=== PATIENT | male | born 1960 | race Caucasian/White ===

== ENCOUNTER 2024-11-21 17:39 | Outpatient (REF) | payer OTHER, SELFPAY ==
--- NOTE | ~2024-11-21 | MR_ITS ---
CLINICAL HISTORY: SPONDYLOSIS W MYELOPATHY ? Cord compression. MR cervical spine without gadolinium Comparison: None Findings: Abnormal signal of the cervical spinal cord at C3-C4 extending inferiorly to C4 selectively measures 6 mm concerning for manifestations of myelopathy secondary to spinal stenosis. Small cord infarction is also considered (image 15 of series 6). No significant adjacent syrinx or piercing pharynx edema this time. Analogous lesion at C7 measures 4 mm. No intramedullary mass-effect by noncontrast imaging. Mild reversal of the cervical lordosis. Mild C5, C6, and C7 vertebral height losses appear old chronic. Multilevel Modic type 1 and Modic type 2 endplate changes are noted with partial bridging osteophytes. Posterior longitudinal ligament mineralization of the C3-C4 accentuated spinal stenosis of the level. No drainable paraspinal fluid collection. Postprocedural changes from posterior decompression from C3-C4 to the cervicothoracic junction. C2-C3: Bilateral facet arthropathy. No spinal canal stenosis. Mild-moderate right and mild left foraminal narrowing. C3-C4: Disc osteophyte complex and bilateral facet arthropathy with moderate and left-sided predominant spinal canal stenosis. Severe bilateral foraminal narrowing. C4-C5: Mild anterolisthesis and previous procedure changes from posterior decompression. Mild likely recurrent right foraminal narrowing. C5-C6: Disc osteophyte complex and bilateral facet arthropathy. Postprocedural changes with recurrent moderate right foraminal narrowing. C6-C7: Postprocedural changes. Likely recurrent mild-moderate right foraminal narrowing. C7-T1: Bilateral facet arthropathy. Mild degenerative disc change. No spinal canal stenosis. Mild-moderate bilateral foraminal narrowing. Facet arthropathy also includes the imaged thoracic spine. IMPRESSION: 1. Nonspecific abnormal signal of the cervical spinal cord. Differential considerations include manifestations of the myelopathy secondary to spinal stenosis, particularly at C3-C4. 2. Findings of spinal stenosis are most pronounced of the C3-C4 where there is moderate spinal canal stenosis and severe bilateral foraminal narrowing. 3. Multilevel facet arthropathy of the cervical spine. This document has been electronically signed by: Jonathan Miguel MD on 11/21/2024 19:24:19
--- OUTSIDE RECORDS SUMMARY | 2024-11-21 17:47 | XMS_ITS | Encounter Summary ---
Author Organization [facility] Address [address] [place] [address] Care Team Providers Care Brand Engineer Name Role Phone Clemente Davidson MD Primary Care Provider [phone] Encounter Details Date Type Department Care Team (Late st Contact Info) Description 08/05/2024 Lab Requisition [facility] - Main Lab [address] [facility] [place] [address] Clemente Davidson MD [address] [facility] [address] [place], [address] Cellulitis, unspecified Social History Tobacco Use Types Packs/Day Years Used Date Smoking Tobacco: Every Day Cigarettes Smokeless Tobacco: Never Alcohol Use Standard Drinks/Week Comments Yes 0 (1 standard drink = 0.6 oz pur e alcohol) Sex and Gender Information Value Date Recorded Sex Assigned at Not on file Legal Sex Male 12:28 PM EST Gender Identity Not on file Sexual Orientation Not on file documented as of this encounter Plan of Treatment Not on file documented as of this encounter Procedures Procedure Name Priority Date/Time Associated Diagnosis Comments TRAVEL PHLEBOTOMY FEE Routine 08/06/2024 5:01 AM EST Cellulitis, unspecified CBC WITH AUTO DIFFERENTIAL Routine 08/06/2024 5:01 AM EST Cellulitis, unspecified SEDIMENTATION RATE Routine 08/06/2024 5: 01 AM EST Cellulitis, unspecified CBC AND DIFFERENTIAL Routine 08/06/2024 5:01 AM EST Cellulitis, unspecified C-REACTIVE PROTEIN Routine 08/06/2024 5: 01 AM EST Cellulitis, unspecified COMPREHENSIVE METABOLIC PANEL Routine 08/06/2024 5:01 AM EST Cellulitis, unspecified documented in this encounter Results * Travel phlebotomy fee (08/06/2024 5:01 AM EST) [facility] TRAVEL PHLEBOTOMY FEE Completed 08/06/2024 11:01 AM [facility] Blood Venous blood specimen / Unknown Venipuncture / Unknown 08/06/2024 5:01 AM EST 08/06/2024 10:51 AM EST us Clemente Davidson MD LAB BLOOD ORDERABLES Final Resul t [facility] [address] [place] [address], [place] [phone] * (ABNORMAL) CBC auto differential (08/06/2024 5:01 AM EST) [facility] WBC 10.0 4.8 - 10.8 K/mcL LAB HEMETOLOGY METHOD 08/06/2024 11:27 AM [facility] RBC 4.30(L) 4.50 - 5.50 M/mcL LAB HEMETOLOGY METHOD 08/06/2024 11:27 AM [facility] Hemoglobin 12.1(L) 13.5 - 17.5 g/dL LAB HEMETOLOGY METHOD 08/06/2024 11:27 AM [facility] Hematocrit 39.6(L) 42.0 - 54.0 % LAB HEMETOLOGY METHOD 08/06/2024 11:27 AM [facility] MCV 91.7 79.0 - 98.0 FL LAB HEMETOLOGY METHOD 08/06/2024 11:27 AM [facility] MCH 28.0 27.0 - 32.0 pcg LAB HEMETOLOGY METHOD 08/06/2024 11:27 AM [facility] MCHC 30.6(L) 32.0 - 37.0 g/dL LAB HEMETOLOGY METHOD 08/06/2024 11:27 AM [facility] RDW 15.0 11.0 - 15.0 % LAB HEMETOLOGY METHOD 08/06/2024 11:27 AM [facility] Platelets 334 130 - 400 K/mcL LAB HEMETOLOGY METHOD 08/06/2024 11:27 AM [facility] MPV 11.4(H) 7.0 - 11.0 FL LAB HEMETOLOGY METHOD 08/06/2024 11:27 AM [facility] NRBC 0.0 <1.0 % LAB HEMETOLOGY METHOD 08/06/2024 11:27 AM [facility] NRBC Absolute 0.00 <0.10 K/mcL LAB HEMETOLOGY METHOD 08/06/2024 11:27 AM [facility] Neutrophils Relative 43.9 % LAB HEMETOLOGY METHOD 08/06/2024 11:27 AM [facility] Lymphocytes Relative 39.7 % LAB HEMETOLOGY METHOD 08/06/2024 11:27 AM [facility] Monocytes Relative 11.4 % LAB HEMETOLOGY METHOD 08/06/2024 11:27 AM [facility] Eosinophils Relative 4.2 % LAB HEMETOLOGY METHOD 08/06/2024 11:27 AM [facility] Basophils Relative 0.6 % LAB HEMETOLOGY METHOD 08/06/2024 11:27 AM [facility] Immature Granulocytes Relative 0.2 % LAB HEMETOLOGY METHOD 08/06/2024 11:27 AM [facility] Neutrophils Absolute 4.37 1.50 - 7.00 K/mcL LAB HEMETOLOGY METHOD 08/06/2024 11:27 AM [facility] Lymphocytes Absolute 3.95 1.00 - 5.00 K/mcL LAB HEMETOLOGY METHOD 08/06/2024 11:27 AM EST [facility] Monocytes Absolute 1.14(H) 0.20 - 1.00 K/[facility] LAB HEMETOLOGY METHOD 08/06/2024 11:27 AM EST [facility] Eosinophils Absolute 0.42 0.00 - 0.50 K/[facility] LAB HEMETOLOGY METHOD 08/06/2024 11:27 AM EST [facility] Basophils Absolute 0.06 0.00 - 0.20 K/[facility] LAB HEMETOLOGY METHOD 08/06/2024 11:27 AM EST [facility] Immature Granulocytes Absolute 0.02 0.00 - 0.03 K/[facility] LAB HEMETOLOGY METHOD 08/06/2024 11:27 AM EST [facility] Blood Venous blood specimen / Unknown Venipuncture / Unknown 08/06/2024 5:01 AM EST 08/06/2024 10:51 AM EST us Clemente Davidson MD LAB BLOOD ORDERABLES Final Resul t Performing Organization Address City/[facility]/ZIP Co de Phone Number [facility] [address] [place] [address], [place] [phone] * (ABNORMAL) C-reactive protein (08/06/2024 5:01 AM EST) C-Reactive Protein 0.97(H) <=0.50 mg/dL LAB CHEMISTRY METHOD 08/06/2024 11:42 AM EST [facility] Blood Venous blood specimen / Unknown Venipuncture / Unknown 08/06/2024 5:01 AM EST 08/06/2024 10:51 AM EST us Clemente Davidson MD LAB BLOOD ORDERABLES Final Resul t [facility] [address] [place] [address], [place] [phone] * Sedimentation rate (08/06/2024 5:01 AM EST) Pathologist [facility] Sed Rate 20 0 - 20 mm/hr LAB HEMETOLOGY METHOD 08/06/2024 11:40 AM [facility] Blood Venous blood specimen / Unknown Venipuncture / Unknown 08/06/2024 5:01 AM EST 08/06/2024 10:51 AM EST us Clemente Davidson MD LAB BLOOD ORDERABLES Final Resul t [facility] [address] [place] [address], [place] [phone] * (ABNORMAL) Comprehensive metabolic panel (08/06/2024 5:01 AM EST) [facility] Sodium 141 133 - 145 mmol/L LAB CHEMISTRY METHOD 08/06/2024 11:42 AM [facility] Potassium 4.9 3.5 - 5.5 mmol/L LAB CHEMISTRY METHOD 08/06/2024 11:42 AM [facility] Chloride 111(H) 96 - 110 mmol/L LAB CHEMISTRY METHOD 08/06/2024 11:42 AM [facility] CO2 23 21 - 32 mmol/L LAB CHEMISTRY METHOD 08/06/2024 11:42 AM [facility] Anion Gap 7 3 - 11 LAB CHEMISTRY METHOD 08/06/2024 11:42 AM [facility] Glucose 69(L) 70 - 100 mg/dL LAB CHEMISTRY METHOD 08/06/2024 11:42 AM [facility] BUN 13 5 - 25 mg/dL LAB CHEMISTRY METHOD 08/06/2024 11:42 AM [facility] Creatinine 1.00 0.70 - 1.30 mg/dL LAB CHEMISTRY METHOD 08/06/2024 11:42 AM [facility] eGFR 85 >=60 mL/min/1. 73m2 LAB CHEMISTRY METHOD 08/06/2024 11:42 AM [facility] Comment:Calculation based on the??Chronic Kidney Disease Epidemiology Collaboration (CKD-EPI) equation refit??without adjustment for race. BUN/Creatinine Ratio 13.0 LAB CHEMISTRY METHOD 08/06/2024 11:42 AM [facility] Calcium 9.6 8.5 - 10.5 mg/dL LAB CHEMISTRY METHOD 08/06/2024 11:42 AM [facility] AST (SGOT) 20 10 - 42 unit/L LAB CHEMISTRY METHOD 08/06/2024 11:42 AM [facility] ALT (SGPT) 20 10 - 60 unit/L LAB CHEMISTRY METHOD 08/06/2024 11:42 AM [facility] Alkaline Phosphatase 74 42 - 121 unit/L LAB CHEMISTRY METHOD 08/06/2024 11:42 AM [facility] Total Protein 6.5 6.0 - 8.0 g/dL LAB CHEMISTRY METHOD 08/06/2024 11:42 AM [facility] Albumin 3.2 3.2 - 5.0 g/dL LAB CHEMISTRY METHOD 08/06/2024 11:42 AM [facility] Total Bilirubin 0.4 0.0 - 1.4 mg/dL LAB CHEMISTRY METHOD 08/06/2024 11:42 AM [facility] Blood Venous blood specimen / Unknown Venipuncture / Unknown 08/06/2024 5:01 AM EST 08/06/2024 10:51 AM EST us Clemente Davidson MD LAB BLOOD ORDERABLES Final Resul t [facility] [address] [place] [address], documented in this encounter Visit Diagnoses Diagnosis Cellulitis, unspecified documented in this encounter Care Teams Brand Engineer Relationship Specialty Start Date End Date Clemente Davidson MD [address], [phone] PCP - General Family Medicine 08/15/24 documented as of this encounter
--- OUTSIDE RECORDS SUMMARY | 2024-11-21 17:48 | XMS_ITS | Encounter Summary ---
Author Organization [facility] Address [address] [place] [address] Care Team Providers Care Urban Anthropologist Name Role Phone Clemente Davidson MD Primary Care Provider [phone] Encounter Details Date Type Department Care Team (Late st Contact Info) Description 08/29/2024 Lab Requisition [facility] - Main Lab [address] [facility] [place] [address] Clemente Davidson MD 38 [facility] [address] [place], [address] Osteomyelitis of vertebra, sacral and sacrococcygeal region (CMS/HCC) Social History Tobacco Use Types Packs/Day Years [...] Procedure Name Priority Date/Time Associated Diagnosis Comments SEDIMENTATION RATE Routine 09/01/2024 4: 51 AM EST Osteomyelitis of vertebra, sacral and sacrococcygeal region (CMS/HCC) COMPLETE BLOOD COUNT Routine 09/01/2024 4:51 AM EST Osteomyelitis of vertebra, sacral and sacrococcygeal region (CMS/HCC) C-REACTIVE PROTEIN Routine 09/01/2024 4: 51 AM EST Osteomyelitis of vertebra, sacral and sacrococcygeal region (CMS/HCC) COMPREHENSIVE METABOLIC PANEL Routine 09/01/2024 4:51 AM EST Osteomyelitis of vertebra, sacral and sacrococcygeal region (CMS/HCC) documented in this encounter Results * C-reactive protein (09/01/2024 4:51 AM EST) [facility] C-Reactive Protein 0.37 <=0.50 mg/dL LAB CHEMISTRY METHOD 09/01/2024 9:18 AM EST [facility] Blood Venous blood specimen / Unknown Venipuncture / Unknown 09/01/2024 4:51 AM EST 09/01/2024 8:13 AM EST Clemente Davidson MD LAB BLOOD ORDERABLES Final Resul t Performing Organization Address [facility]/ZIP Co de Phone Number [facility] [address] [place] [address], [place] [phone] * (ABNORMAL) Sedimentation rate (09/01/2024 4:51 AM EST) [facility] Sed Rate 38(H) 0 - 20 mm/hr LAB HEMETOLOGY METHOD 09/01/2024 8:40 AM EST [facility] Blood Venous blood specimen / Unknown Venipuncture / Unknown 09/01/2024 4:51 AM EST 09/01/2024 8:13 AM EST Clemente Davidson MD LAB BLOOD ORDERABLES Final Resul t Performing Organization Address City/[facility]/ZIP Co de Phone Number [facility] [address] [place] [address], [place] [phone] * (ABNORMAL) Comprehensive metabolic panel (09/01/2024 4:51 AM EST) [facility] Sodium 143 133 - 145 mmol/L LAB CHEMISTRY METHOD 09/01/2024 9:11 AM EST [facility] Potassium 4.4 3.5 - 5.5 mmol/L LAB CHEMISTRY METHOD 09/01/2024 9:11 AM EST [facility] Chloride 113(H) 96 - 110 mmol/L LAB CHEMISTRY METHOD 09/01/2024 9:11 AM [facility] CO2 23 21 - 32 mmol/L LAB CHEMISTRY METHOD 09/01/2024 9:11 AM [facility] Anion Gap 7 3 - 11 LAB CHEMISTRY METHOD 09/01/2024 9:11 AM [facility] Glucose 95 70 - 100 mg/dL LAB CHEMISTRY METHOD 09/01/2024 9:11 AM [facility] BUN 18 5 - 25 mg/dL LAB CHEMISTRY METHOD 09/01/2024 9:11 AM [facility] Creatinine 0.84 0.70 - 1.30 mg/dL LAB CHEMISTRY METHOD 09/01/2024 9:11 AM [facility] eGFR 98 >=60 mL/min/1. 73m2 LAB CHEMISTRY METHOD 09/01/2024 9:11 AM [facility] Comment:Calculation based on the??Chronic Kidney Disease Epidemiology Collaboration (CKD-EPI) equation refit??without adjustment for race. BUN/Creatinine Ratio 21.4 LAB CHEMISTRY METHOD 09/01/2024 9:11 AM [facility] Calcium 9.0 8.5 - 10.5 mg/dL LAB CHEMISTRY METHOD 09/01/2024 9:11 AM [facility] AST (SGOT) 12 10 - 42 unit/L LAB CHEMISTRY METHOD 09/01/2024 9:11 AM [facility] ALT (SGPT) 17 10 - 60 unit/L LAB CHEMISTRY METHOD 09/01/2024 9:11 AM [facility] Alkaline Phosphatase 101 42 - 121 unit/L LAB CHEMISTRY METHOD 09/01/2024 9:11 AM [facility] Total Protein 5.9(L) 6.0 - 8.0 g/dL LAB CHEMISTRY METHOD 09/01/2024 9:11 AM [facility] Albumin 3.1(L) 3.2 - 5.0 g/dL LAB CHEMISTRY METHOD 09/01/2024 9:11 AM EST [facility] Total Bilirubin 0.2 0.0 - 1.4 mg/dL LAB CHEMISTRY METHOD 09/01/2024 9:11 AM [facility] Blood Venous blood specimen / Unknown Venipuncture / Unknown 09/01/2024 4:51 AM EST 09/01/2024 8:13 AM EST us Clemente Davidson MD LAB BLOOD ORDERABLES Final Resul t [facility] [address] [place] [address], [place] [phone] * (ABNORMAL) Complete blood count (09/01/2024 4:51 AM EST) WBC 10.7 4.8 - 10.8 K/mcL LAB HEMETOLOGY METHOD 09/01/2024 8:34 AM [facility] RBC 4.40(L) 4.50 - 5.50 M/[facility] LAB HEMETOLOGY METHOD 09/01/2024 8:34 AM [facility] Hemoglobin 12.3(L) 13.5 - 17.5 g/dL LAB HEMETOLOGY METHOD 09/01/2024 8:34 AM [facility] Hematocrit 39.2(L) 42.0 - 54.0 % LAB HEMETOLOGY METHOD 09/01/2024 8:34 AM [facility] MCV 89.3 79.0 - 98.0 FL LAB HEMETOLOGY METHOD 09/01/2024 8:34 AM [facility] MCH 28.0 27.0 - 32.0 pcg LAB HEMETOLOGY METHOD 09/01/2024 8:34 AM [facility] MCHC 31.4(L) 32.0 - 37.0 g/dL LAB HEMETOLOGY METHOD 09/01/2024 8:34 AM EST [facility] RDW 15.5(H) 11.0 - 15.0 % LAB HEMETOLOGY METHOD 09/01/2024 8:34 AM EST [facility] Platelets 320 130 - 400 K/mcL LAB HEMETOLOGY METHOD 09/01/2024 8:34 AM EST [facility] MPV 11.2(H) 7.0 - 11.0 FL LAB HEMETOLOGY METHOD 09/01/2024 8:34 AM EST [facility] NRBC 0.0 <1.0 % LAB HEMETOLOGY METHOD 09/01/2024 8:34 AM [facility] NRBC Absolute 0.00 <0.10 K/mcL LAB HEMETOLOGY METHOD 09/01/2024 8:34 AM [facility] Blood Venous blood specimen / Unknown Venipuncture / Unknown 09/01/2024 4:51 AM EST 09/01/2024 8:13 AM EST us Clemente Davidson MD LAB BLOOD ORDERABLES Final Resul t [facility] [address] [place] [address], documented in this encounter Visit Diagnoses Diagnosis Osteomyelitis of vertebra, sacral and sacrococcygeal region (CMS/HCC) documented in this encounter Care Teams Urban Anthropologist Relationship Specialty Start Date End Date Clemente Davidson MD [address] [place] [address], [phone] PCP - General Family Medicine 08/15/24 documented as of this encounter
--- OUTSIDE RECORDS SUMMARY | 2024-11-21 17:48 | XMS_ITS | Encounter Summary ---
Author Organization [facility] Address [address] [place] [phone] Care Team Providers Care Cylinder Machine Operator Name Role Phone Clemente Davidson MD Primary Care Provider [phone] Encounter Details Date Type Department Care Team (Late st Contact Info) Description 2024 Lab Requisition [facility] - Main Lab [address] [facility] [place] [address] Clemente Davidson MD [address] [facility] [address] [place], [phone] Osteomyelitis of vertebra, sacral and sacrococcygeal [...] on file documented as of this encounter Visit Diagnoses Diagnosis Osteomyelitis of vertebra, sacral and sacrococcygeal region (CMS/HCC) documented in this encounter Care Teams Cylinder Machine Operator Relationship Specialty Start Date End Date Clemente Davidson MD [address] [facility] [address] [place], [phone] PCP - General Family Medicine 08/15/24 documented as of this encounter
--- OUTSIDE RECORDS SUMMARY | 2024-11-21 17:48 | XMS_ITS | Encounter Summary ---
Author Organization [facility] Address [address] [place] [address] Care Team Providers Care Electronic Technologist Name Role Phone Clemente Davidson MD Primary Care Provider Encounter Details Date Type Department Care Team (Late st Contact Info) Description 08/15/2024 Lab Requisition [facility] - Main Lab 299 [email or web address] [address] Clemente Davidson MD 38 [facility] [address] [place], [phone] Essential (primary) hypertension; Chronic kidney disease, unspecified; Osteomyelitis of vertebra, sacral and sacrococcygeal region [...] Procedure Name Priority Date/Time Associated Diagnosis Comments VITAMIN D 25 HYDROXY Routine 08/18/2024 4:57 AM EST Essential (primary) hypertension Chronic kidney disease, unspecified Osteomyelitis of vertebra, sacral and sacrococcygeal region (CMS/HCC) SEDIMENTATION RATE Routine 08/18/2024 4: 57 AM EST Essential (primary) hypertension Chronic kidney disease, unspecified Osteomyelitis of vertebra, sacral and sacrococcygeal region (CMS/HCC) COMPLETE BLOOD COUNT Routine 08/18/2024 4:57 AM EST Essential (primary) hypertension Chronic kidney disease, unspecified Osteomyelitis of vertebra, sacral and sacrococcygeal region (CMS/HCC) C-REACTIVE PROTEIN Routine 08/18/2024 4: 57 AM EST Essential (primary) hypertension Chronic kidney disease, unspecified Osteomyelitis of vertebra, sacral and sacrococcygeal region (CMS/HCC) COMPREHENSIVE METABOLIC PANEL Routine 08/18/2024 4:57 AM EST Essential (primary) hypertension Chronic kidney disease, unspecified Osteomyelitis of vertebra, sacral and sacrococcygeal region (CMS/HCC) documented in this encounter Results * Vitamin D 25 hydroxy (08/18/2024 4:57 AM EST) [facility] Vit D, 25-Hydroxy 44.7 30.0 - 80.0 ng/mL LAB CHEMISTRY METHOD 08/18/2024 9:11 AM EST [facility] Blood Venous blood specimen / Unknown Venipuncture / Unknown 08/18/2024 4:57 AM EST 08/18/2024 7:49 AM EST us Clemente Davidson MD LAB BLOOD ORDERABLES Final Resul t Performing Organization Address City/[facility]/ZIP Co de Phone Number [facility] [address] [place] [address], * (ABNORMAL) C-reactive protein (08/18/2024 4:57 AM EST) [facility] C-Reactive Protein 0.56(H) <=0.50 mg/dL LAB CHEMISTRY METHOD 08/18/2024 9:02 AM EST [facility] Blood Venous blood specimen / Unknown Venipuncture / Unknown 08/18/2024 4:57 AM EST 08/18/2024 7:49 AM EST us Clemente Davidson MD LAB BLOOD ORDERABLES Final Resul t [facility] [address] [place] [address], [place] [phone] * (ABNORMAL) Sedimentation rate (08/18/2024 4:57 AM EST) [facility] Sed Rate 54(H) 0 - 20 mm/hr LAB HEMETOLOGY METHOD 08/18/2024 8:22 AM EST [facility] Blood Venous blood specimen / Unknown Venipuncture / Unknown 08/18/2024 4:57 AM EST 08/18/2024 7:49 AM EST us Clemente Davidson MD LAB BLOOD ORDERABLES Final Resul t [facility] [address] [place] [address], [place] [phone] * (ABNORMAL) Comprehensive metabolic panel (08/18/2024 4:57 AM EST) [facility] Sodium 143 133 - 145 mmol/L LAB CHEMISTRY METHOD 08/18/2024 9:02 AM [facility] Potassium 4.3 3.5 - 5.5 mmol/L LAB CHEMISTRY METHOD 08/18/2024 9:02 AM [facility] Chloride 115(H) 96 - 110 mmol/L LAB CHEMISTRY METHOD 08/18/2024 9:02 AM [facility] CO2 22 21 - 32 mmol/L LAB CHEMISTRY METHOD 08/18/2024 9:02 AM [facility] Anion Gap 6 3 - 11 LAB CHEMISTRY METHOD 08/18/2024 9:02 AM [facility] Glucose 87 70 - 100 mg/dL LAB CHEMISTRY METHOD 08/18/2024 9:02 AM [facility] BUN 16 5 - 25 mg/dL LAB CHEMISTRY METHOD 08/18/2024 9:02 AM [facility] Creatinine 0.83 0.70 - 1.30 mg/dL LAB CHEMISTRY METHOD 08/18/2024 9:02 AM [facility] eGFR 98 >=60 mL/min/1. 73m2 LAB CHEMISTRY METHOD 08/18/2024 9:02 AM [facility] Comment:Calculation based on the??Chronic Kidney Disease Epidemiology Collaboration (CKD-EPI) equation refit??without adjustment for race. BUN/Creatinine Ratio 19.3 LAB CHEMISTRY METHOD 08/18/2024 9:02 AM [facility] Calcium 9.0 8.5 - 10.5 mg/dL LAB CHEMISTRY METHOD 08/18/2024 9:02 AM [facility] AST (SGOT) 13 10 - 42 unit/L LAB CHEMISTRY METHOD 08/18/2024 9:02 AM [facility] ALT (SGPT) 18 10 - 60 unit/L LAB CHEMISTRY METHOD 08/18/2024 9:02 AM [facility] Alkaline Phosphatase 91 42 - 121 unit/L LAB CHEMISTRY METHOD 08/18/2024 9:02 AM [facility] Total Protein 6.2 6.0 - 8.0 g/dL LAB CHEMISTRY METHOD 08/18/2024 9:02 AM [facility] Albumin 3.1(L) 3.2 - 5.0 g/dL LAB CHEMISTRY METHOD 08/18/2024 9:02 AM [facility] Total Bilirubin 0.2 0.0 - 1.4 mg/dL LAB CHEMISTRY METHOD 08/18/2024 9:02 AM [facility] Blood Venous blood specimen / Unknown Venipuncture / Unknown 08/18/2024 4:57 AM EST 08/18/2024 7:49 AM EST us Clemente Davidson MD LAB BLOOD ORDERABLES Final Resul t [facility] [address] [place] [address], * (ABNORMAL) Complete blood count (08/18/2024 4:57 AM EST) [facility] WBC 10.9(H) 4.8 - 10.8 K/mcL LAB HEMETOLOGY METHOD 08/18/2024 8:12 AM [facility] RBC 4.30(L) 4.50 - 5.50 M/mcL LAB HEMETOLOGY METHOD 08/18/2024 8:12 AM [facility] Hemoglobin 11.8(L) 13.5 - 17.5 g/dL LAB HEMETOLOGY METHOD 08/18/2024 8:12 AM [facility] Hematocrit 38.3(L) 42.0 - 54.0 % LAB HEMETOLOGY METHOD 08/18/2024 8:12 AM [facility] MCV 89.9 79.0 - 98.0 FL LAB HEMETOLOGY METHOD 08/18/2024 8:12 AM [facility] MCH 27.7 27.0 - 32.0 pcg LAB HEMETOLOGY METHOD 08/18/2024 8:12 AM [facility] MCHC 30.8(L) 32.0 - 37.0 g/dL LAB HEMETOLOGY METHOD 08/18/2024 8:12 AM [facility] RDW 15.2(H) 11.0 - 15.0 % LAB HEMETOLOGY METHOD 08/18/2024 8:12 AM [facility] Platelets 324 130 - 400 K/mcL LAB HEMETOLOGY METHOD 08/18/2024 8:12 AM [facility] MPV 11.3(H) 7.0 - 11.0 FL LAB HEMETOLOGY METHOD 08/18/2024 8:12 AM [facility] NRBC 0.0 <1.0 % LAB HEMETOLOGY METHOD 08/18/2024 8:12 AM [facility] NRBC Absolute 0.00 <0.10 K/mcL LAB HEMETOLOGY METHOD 08/18/2024 8:12 AM EST [facility] Blood Venous blood specimen / Unknown Venipuncture / Unknown 08/18/2024 4:57 AM EST 08/18/2024 7:49 AM EST us Clemente Davidson MD LAB BLOOD ORDERABLES Final Resul t [facility] [address] [place] [address], documented in this encounter Visit Diagnoses Diagnosis Essential (primary) hypertension Unspecified essential hypertension Chronic kidney disease, unspecified Osteomyelitis of vertebra, sacral and sacrococcygeal region (CMS/HCC) documented in this encounter Care Teams Electronic Technologist Relationship Specialty Start Date End Date Clemente Davidson MD [address] [place] [phone] PCP - General Family Medicine 08/15/24 documented as of this encounter
--- OUTSIDE RECORDS SUMMARY | 2024-11-21 17:48 | XMS_ITS | Encounter Summary ---
Author Organization [facility] Address [address] [place] [phone] Care Team Providers Care [employer] Name Role Phone Clemente Davidson MD Primary Care Provider [phone] Encounter Details Date Type Department Care Team (Late st Contact Info) Description 09/06/2024 Lab Requisition [facility] - Main Lab [address] [facility] [employer] [place] [address] Clemente Davidson MD 38 [facility] [address] [place], [phone] Osteomyelitis of vertebra, sacral and sacrococcygeal [...] Date/Time Associated Diagnosis Comments SEDIMENTATION RATE Routine 09/08/2024 5: 10 AM EST Osteomyelitis of vertebra, sacral and sacrococcygeal region (CMS/HCC) COMPLETE BLOOD COUNT Routine 09/08/2024 5:10 AM EST Osteomyelitis of vertebra, sacral and sacrococcygeal region (CMS/HCC) C-REACTIVE PROTEIN Routine 09/08/2024 5: 10 AM EST Osteomyelitis of vertebra, sacral and sacrococcygeal region (CMS/HCC) COMPREHENSIVE METABOLIC PANEL Routine 09/08/2024 5:10 AM EST Osteomyelitis of vertebra, sacral and sacrococcygeal region (CMS/HCC) documented in this encounter Results * (ABNORMAL) C-reactive protein (09/08/2024 5:10 AM EST) Pathologist [facility] C-Reactive Protein 1.41(H) <=0.50 mg/dL LAB CHEMISTRY METHOD 09/08/2024 10:09 AM EST [facility] Blood Venous blood specimen / Unknown Venipuncture / Unknown 09/08/2024 5:10 AM EST 09/08/2024 9:18 AM EST Clemente Davidson MD LAB BLOOD ORDERABLES Final Resul t Performing Organization Address [facility]/ZIP Co de Phone Number [facility] [address] [place] [address], [place] [phone] * (ABNORMAL) Sedimentation rate (09/08/2024 5:10 AM EST) [facility] Sed Rate 42(H) 0 - 20 mm/hr LAB HEMETOLOGY METHOD 09/08/2024 10:01 AM EST [facility] Blood Venous blood specimen / Unknown Venipuncture / Unknown 09/08/2024 5:10 AM EST 09/08/2024 9:13 AM EST Clemente Davidson MD LAB BLOOD ORDERABLES Final Resul t [facility] [address] [place] [address], [place] [phone] * (ABNORMAL) Comprehensive metabolic panel (09/08/2024 5:10 AM EST) [facility] Sodium 142 133 - 145 mmol/L LAB CHEMISTRY METHOD 09/08/2024 10:07 AM EST [facility] Potassium 3.9 3.5 - 5.5 mmol/L LAB CHEMISTRY METHOD 09/08/2024 10:07 AM [facility] Chloride 113(H) 96 - 110 mmol/L LAB CHEMISTRY METHOD 09/08/2024 10:07 AM [facility] CO2 22 21 - 32 mmol/L LAB CHEMISTRY METHOD 09/08/2024 10:07 AM [facility] Anion Gap 7 3 - 11 LAB CHEMISTRY METHOD 09/08/2024 10:07 AM [facility] Glucose 152(H) 70 - 100 mg/dL LAB CHEMISTRY METHOD 09/08/2024 10:07 AM [facility] BUN 17 5 - 25 mg/dL LAB CHEMISTRY METHOD 09/08/2024 10:07 AM [facility] Creatinine 0.90 0.70 - 1.30 mg/dL LAB CHEMISTRY METHOD 09/08/2024 10:07 AM [facility] eGFR 96 >=60 mL/min/1. 73m2 LAB CHEMISTRY METHOD 09/08/2024 10:07 AM [facility] Comment:Calculation based on the??Chronic Kidney Disease Epidemiology Collaboration (CKD-EPI) equation refit??without adjustment for race. BUN/Creatinine Ratio 18.9 LAB CHEMISTRY METHOD 09/08/2024 10:07 AM [facility] Calcium 8.8 8.5 - 10.5 mg/dL LAB CHEMISTRY METHOD 09/08/2024 10:07 AM [facility] AST (SGOT) 14 10 - 42 unit/L LAB CHEMISTRY METHOD 09/08/2024 10:07 AM [facility] ALT (SGPT) 19 10 - 60 unit/L LAB CHEMISTRY METHOD 09/08/2024 10:07 AM [facility] Alkaline Phosphatase 105 42 - 121 unit/L LAB CHEMISTRY METHOD 09/08/2024 10:07 AM [facility] Total Protein 5.9(L) 6.0 - 8.0 g/dL LAB CHEMISTRY METHOD 09/08/2024 10:07 AM [facility] Albumin 3.0(L) 3.2 - 5.0 g/dL LAB CHEMISTRY METHOD 09/08/2024 10:07 AM [facility] Total Bilirubin 0.3 0.0 - 1.4 mg/dL LAB CHEMISTRY METHOD 09/08/2024 10:07 AM [facility] Blood Venous blood specimen / Unknown Venipuncture / Unknown 09/08/2024 5:10 AM EST 09/08/2024 9:18 AM EST us Clemente Davidson MD LAB BLOOD ORDERABLES Final Resul t [facility] [address] [place] [address], [place] [phone] * (ABNORMAL) Complete blood count (09/08/2024 5:10 AM EST) WBC 10.1 4.8 - 10.8 K/mcL LAB HEMETOLOGY METHOD 09/08/2024 9:47 AM [facility] RBC 4.40(L) 4.50 - 5.50 M/mcL LAB HEMETOLOGY METHOD 09/08/2024 9:47 AM [facility] Hemoglobin 12.2(L) 13.5 - 17.5 g/dL LAB HEMETOLOGY METHOD 09/08/2024 9:47 AM [facility] Hematocrit 39.0(L) 42.0 - 54.0 % LAB HEMETOLOGY METHOD 09/08/2024 9:47 AM [facility] MCV 89.4 79.0 - 98.0 FL LAB HEMETOLOGY METHOD 09/08/2024 9:47 AM [facility] MCH 28.0 27.0 - 32.0 pcg LAB HEMETOLOGY METHOD 09/08/2024 9:47 AM [facility] MCHC 31.3(L) 32.0 - 37.0 g/dL LAB HEMETOLOGY METHOD 09/08/2024 9:47 AM EST [facility] RDW 15.8(H) 11.0 - 15.0 % LAB HEMETOLOGY METHOD 09/08/2024 9:47 AM [facility] Platelets 280 130 - 400 K/mcL LAB HEMETOLOGY METHOD 09/08/2024 9:47 AM EST [facility] MPV 11.5(H) 7.0 - 11.0 FL LAB HEMETOLOGY METHOD 09/08/2024 9:47 AM EST [facility] NRBC 0.0 <1.0 % LAB HEMETOLOGY METHOD 09/08/2024 9:47 AM [facility] NRBC Absolute 0.00 <0.10 K/mcL LAB HEMETOLOGY METHOD 09/08/2024 9:47 AM [facility] Blood Venous blood specimen / Unknown Venipuncture / Unknown 09/08/2024 5:10 AM EST 09/08/2024 9:13 AM EST us Clemente Davidson MD LAB BLOOD ORDERABLES Final Resul t [facility] [address] [place] [address], documented in this encounter Visit Diagnoses Diagnosis Osteomyelitis of vertebra, sacral and sacrococcygeal region (CMS/HCC) documented in this encounter Care Teams [employer] Relationship Specialty Start Date End Date Clemente Davidson MD [address] [place] [address], [phone] PCP - General Family Medicine 08/15/24 documented as of this encounter
--- OUTSIDE RECORDS SUMMARY | 2024-11-21 17:48 | XMS_ITS | Encounter Summary ---
Author Organization [facility] Address [address] [place] [phone] Care Team Providers Care Distance Education Coordinator Name Role Phone Clemente Davidson MD Primary Care Provider [phone] Encounter Details Date Type Department Care Team (Late st Contact Info) Description 08/22/2024 Lab Requisition [facility] - Main Lab [address] [facility] [place] [address] Clemente Davidson MD 38 [facility] [address] [place], [phone] Osteomyelitis of vertebra, sacral and sacrococcygeal [...] Date/Time Associated Diagnosis Comments SEDIMENTATION RATE Routine 08/25/2024 6: 18 AM EST Osteomyelitis of vertebra, sacral and sacrococcygeal region (CMS/HCC) COMPLETE BLOOD COUNT Routine 08/25/2024 6:18 AM EST Osteomyelitis of vertebra, sacral and sacrococcygeal region (CMS/HCC) C-REACTIVE PROTEIN Routine 08/25/2024 6: 18 AM EST Osteomyelitis of vertebra, sacral and sacrococcygeal region (CMS/HCC) COMPREHENSIVE METABOLIC PANEL Routine 08/25/2024 6:18 AM EST Osteomyelitis of vertebra, sacral and sacrococcygeal region (CMS/HCC) documented in this encounter Results * (ABNORMAL) C-reactive protein (08/25/2024 6:18 AM EST) Pathologist [facility] C-Reactive Protein 0.85(H) <=0.50 mg/dL LAB CHEMISTRY METHOD 08/25/2024 11:38 AM EST [facility] Blood Venous blood specimen / Unknown Venipuncture / Unknown 08/25/2024 6:18 AM EST 08/25/2024 10:06 AM EST Clemente Davidson MD LAB BLOOD ORDERABLES Final Resul t Performing Organization Address [facility]/ZIP Co de Phone Number [facility] [address] [place] [address], [place] [phone] * (ABNORMAL) Sedimentation rate (08/25/2024 6:18 AM EST) [facility] Sed Rate 42(H) 0 - 20 mm/hr LAB HEMETOLOGY METHOD 08/25/2024 10:50 AM EST [facility] Blood Venous blood specimen / Unknown Venipuncture / Unknown 08/25/2024 6:18 AM EST 08/25/2024 10:05 AM EST Clemente Davidson MD LAB BLOOD ORDERABLES Final Resul t [facility] [address] [place] [address], [place] [phone] * (ABNORMAL) Comprehensive metabolic panel (08/25/2024 6:18 AM EST) Pathologist [facility] Sodium 143 133 - 145 mmol/L LAB CHEMISTRY METHOD 08/25/2024 11:38 AM EST [facility] Potassium 4.1 3.5 - 5.5 mmol/L LAB CHEMISTRY METHOD 08/25/2024 11:38 AM [facility] Chloride 111(H) 96 - 110 mmol/L LAB CHEMISTRY METHOD 08/25/2024 11:38 AM [facility] CO2 25 21 - 32 mmol/L LAB CHEMISTRY METHOD 08/25/2024 11:38 AM [facility] Anion Gap 7 3 - 11 LAB CHEMISTRY METHOD 08/25/2024 11:38 AM [facility] Glucose 121(H) 70 - 100 mg/dL LAB CHEMISTRY METHOD 08/25/2024 11:38 AM [facility] BUN 11 5 - 25 mg/dL LAB CHEMISTRY METHOD 08/25/2024 11:38 AM [facility] Creatinine 0.89 0.70 - 1.30 mg/dL LAB CHEMISTRY METHOD 08/25/2024 11:38 AM [facility] eGFR 96 >=60 mL/min/1. 73m2 LAB CHEMISTRY METHOD 08/25/2024 11:38 AM [facility] Comment:Calculation based on the??Chronic Kidney Disease Epidemiology Collaboration (CKD-EPI) equation refit??without adjustment for race. BUN/Creatinine Ratio 12.4 LAB CHEMISTRY METHOD 08/25/2024 11:38 AM [facility] Calcium 9.1 8.5 - 10.5 mg/dL LAB CHEMISTRY METHOD 08/25/2024 11:38 AM [facility] AST (SGOT) 12 10 - 42 unit/L LAB CHEMISTRY METHOD 08/25/2024 11:38 AM [facility] ALT (SGPT) 19 10 - 60 unit/L LAB CHEMISTRY METHOD 08/25/2024 11:38 AM [facility] Alkaline Phosphatase 96 42 - 121 unit/L LAB CHEMISTRY METHOD 08/25/2024 11:38 AM [facility] Total Protein 6.0 6.0 - 8.0 g/dL LAB CHEMISTRY METHOD 08/25/2024 11:38 AM [facility] Albumin 3.0(L) 3.2 - 5.0 g/dL LAB CHEMISTRY METHOD 08/25/2024 11:38 AM [facility] Total Bilirubin 0.2 0.0 - 1.4 mg/dL LAB CHEMISTRY METHOD 08/25/2024 11:38 AM [facility] Blood Venous blood specimen / Unknown Venipuncture / Unknown 08/25/2024 6:18 AM EST 08/25/2024 10:06 AM EST us Clemente Davidson MD LAB BLOOD ORDERABLES Final Resul t [facility] [address] [place] [address], [place] [phone] * (ABNORMAL) Complete blood count (08/25/2024 6:18 AM EST) WBC 9.4 4.8 - 10.8 K/mcL LAB HEMETOLOGY METHOD 08/25/2024 10:39 AM [facility] RBC 4.40(L) 4.50 - 5.50 M/mcL LAB HEMETOLOGY METHOD 08/25/2024 10:39 AM [facility] Hemoglobin 12.3(L) 13.5 - 17.5 g/dL LAB HEMETOLOGY METHOD 08/25/2024 10:39 AM [facility] Hematocrit 39.7(L) 42.0 - 54.0 % LAB HEMETOLOGY METHOD 08/25/2024 10:39 AM [facility] MCV 90.6 79.0 - 98.0 FL LAB HEMETOLOGY METHOD 08/25/2024 10:39 AM [facility] MCH 28.1 27.0 - 32.0 pcg LAB HEMETOLOGY METHOD 08/25/2024 10:39 AM [facility] MCHC 31.0(L) 32.0 - 37.0 g/dL LAB HEMETOLOGY METHOD 08/25/2024 10:39 AM [facility] RDW 15.6(H) 11.0 - 15.0 % LAB HEMETOLOGY METHOD 08/25/2024 10:39 AM [facility] Platelets 330 130 - 400 K/mcL LAB HEMETOLOGY METHOD 08/25/2024 10:39 AM [facility] MPV 10.8 7.0 - 11.0 FL LAB HEMETOLOGY METHOD 08/25/2024 10:39 AM [facility] NRBC 0.0 <1.0 % LAB HEMETOLOGY METHOD 08/25/2024 10:39 AM [facility] NRBC Absolute 0.00 <0.10 K/mcL LAB HEMETOLOGY METHOD 08/25/2024 10:39 AM [facility] Blood Venous blood specimen / Unknown Venipuncture / Unknown 08/25/2024 6:18 AM EST 08/25/2024 10:05 AM EST us Clemente Davidson MD LAB BLOOD ORDERABLES Final Resul t [facility] [address] [place] [address], documented in this encounter Visit Diagnoses Diagnosis Osteomyelitis of vertebra, sacral and sacrococcygeal region (CMS/HCC) documented in this encounter Care Teams Distance Education Coordinator Relationship Specialty Start Date End Date Clemente Davidson MD [address] [place] [address], [phone] PCP - General Family Medicine 08/15/24 documented as of this encounter
--- OUTSIDE RECORDS SUMMARY | 2024-11-21 17:48 | XMS_ITS | Clinical Summary ---
Author Organization [address] Address [address] [place] [address] Phone Care Team Providers Care Global Compensation Manager Name Role Phone Clemente Davidson MD Primary Care Provider Encounters Date Type Department Care Team Description 09/20/[address] [facility] [address] [place] [phone] Clemente Davidson MD Osteomyelitis of vertebra, sacral and sacrococcygeal region ([facility]) [address] [facility] [address] [place] [phone] Clemente Davidson MD Osteomyelitis of vertebra, sacral and sacrococcygeal region ([facility]) 09/09/[address] [facility] [address] [place] [phone] Clemente Davidson MD Cellulitis, unspecified 09/06/[address] [facility] [address] [place] [phone] Clemente Davidson MD Osteomyelitis of vertebra, sacral and sacrococcygeal region ([facility]) 09/02/[address] [facility] [address] [place] [phone] Clemente Davidson MD Cellulitis, unspecified 08/29/[address] [facility] [address] [place] [phone] Clemente Davidson MD Osteomyelitis of vertebra, sacral and sacrococcygeal region ([facility]) 08/26/[address] [facility] [address] [place] [address] Clemente Davidson MD Cellulitis, unspecified 08/22/[address] [facility] [address] [place] [address] Clemente Davidson MD Osteomyelitis of vertebra, sacral and sacrococcygeal region (CMS/HCC) from Last 3 Months Surgical History Surgery Date Site/Laterality Comments OTHER SURGICAL HISTORY PROCEDURE: DENIES PREVIOUS SURGERY Family History Relation Name Status Comments Father Alive Mother Alive Social History Tobacco Use Types Packs/Day Years Used Date Smoking Tobacco: Every Day Cigarettes Smokeless Tobacco: Never Alcohol Use Standard Drinks/Week Comments Yes 0 (1 standard drink = 0.6 oz pur e alcohol) Sex and Gender Information Value Date Recorded Sex Assigned at Not on file Legal Sex Male 12:28 PM EST Gender Identity Not on file Sexual Orientation Not on file Obstetrics History Plan of Treatment Health Maintenance Due Date Last Done Comments Hepatitis A Vaccines (1 of 2 - Risk 2-dose series) 1979 Pneumococcal Vaccine: 50+ Years (1 of 2 - PCV) 1979 Pneumococcal Vaccine: Pediatrics (0 to 5 Years) and At-Risk Patients (6 to 64 Years) (1 of 2 - PCV) 1979 Zoster Vaccines (1 of 2) 2010 Colorectal Cancer Screening: Colonoscopy 08/29/2022 Depression Screening 08/29/2022 HIV Screening 08/29/2022 Hepatitis C Screening 08/29/2022 Social Influencers of Health Screening 08/29/2022 COVID-19 Vaccine ( season) 2024 Influenza Vaccine (#1) 2024 Hypertension/CHF/CAD Annual BMP Blood Test 09/18/2025 09/18/2024, 09/10/2024, 09/08/2024, Additional history exists DTaP,Tdap,and Td Vaccines (3 - Td or Tdap) 11/04/2028 11/04/2018, 01/18/2015 Cholesterol Screening (Lipid Panel) 10/10/2029 10/10/2024 RSV Immunization Patients 60+ Years Old (1 - 1-dose 75+ series) 2035 HIB Vaccines Aged Out No longer eligi ble based on patient's age to complete this topic HPV Vaccines Aged Out No longer eligi ble based on patient's age to complete this topic Hepatitis B Vaccines Aged Out No long er eligible based on patient's age to complete this topic IPV Vaccines Aged Out No longer eligi ble based on patient's age to complete this topic MMR Vaccines Aged Out No longer eligi ble based on patient's age to complete this topic Meningococcal ACWY Vaccine Aged Out N o longer eligible based on patient's age to complete this topic Meningococcal B Vacine Aged Out No lo nger eligible based on patient's age to complete this topic RSV Immunization Patients Under 20 months Aged Out No longer eligible based on patient's age to complete this topic Varicella Vaccines Aged Out No longer eligible based on patient's age to complete this topic Procedures Procedure Name Priority Date/Time Associated Diagnosis Comments HEMOGLOBIN A1C Routine 10/10/2024 1:57 PM EST Special screening for malignant neoplasm of prostate Laboratory tests ordered as part of a complete physical exam (CPE) CAD (coronary artery disease) HTN (hypertension) SANDRA (cerebral atherosclerosis) PROSTATE SPECIFIC ANTIGEN SCREEN Routine 10/10/2024 1:57 PM EST Special screening for malignant neoplasm of prostate Laboratory tests ordered as part of a complete physical exam (CPE) CAD (coronary artery disease) HTN (hypertension) SANDRA (cerebral atherosclerosis) LIPID PANEL WITH REFLEX TO DIRECT LDL Routine 10/10/2024 1:57 PM EST Special screening for malignant neoplasm of prostate Laboratory tests ordered as part of a complete physical exam (CPE) CAD (coronary artery disease) HTN (hypertension) SANDRA (cerebral atherosclerosis) CBC WITH AUTO DIFFERENTIAL Routine 09/18/2024 10:48 AM EST Hypotension Flu Osteomyelitis (CMS/HCC) COMPREHENSIVE METABOLIC PANEL Routine 09/18/2024 10:48 AM EST Hypotension Flu Osteomyelitis (CMS/HCC) CBC AND DIFFERENTIAL Routine 09/18/2024 10:48 AM EST Hypotension Flu Osteomyelitis (CMS/HCC) CBC WITH AUTO DIFFERENTIAL Routine 09/10/2024 8:06 AM EST Cellulitis, unspecified C-REACTIVE PROTEIN Routine 09/10/2024 8: 06 AM EST Cellulitis, unspecified SEDIMENTATION RATE Routine 09/10/2024 8: 06 AM EST Cellulitis, unspecified COMPREHENSIVE METABOLIC PANEL Routine 09/10/2024 8:06 AM EST Cellulitis, unspecified CBC AND DIFFERENTIAL Routine 09/10/2024 8:06 AM EST Cellulitis, unspecified C-REACTIVE PROTEIN Routine 09/08/2024 5: 10 AM EST Osteomyelitis of vertebra, sacral and sacrococcygeal region (CMS/HCC) SEDIMENTATION RATE Routine 09/08/2024 5: 10 AM EST Osteomyelitis of vertebra, sacral and sacrococcygeal region (CMS/HCC) COMPREHENSIVE METABOLIC PANEL Routine 09/08/2024 5:10 AM EST Osteomyelitis of vertebra, sacral and sacrococcygeal region (CMS/HCC) COMPLETE BLOOD COUNT Routine 09/08/2024 5:10 AM EST Osteomyelitis of vertebra, sacral and sacrococcygeal region (CMS/HCC) CBC WITH AUTO DIFFERENTIAL Routine 09/03/2024 6:06 AM EST Cellulitis, unspecified C-REACTIVE PROTEIN Routine 09/03/2024 6: 06 AM EST Cellulitis, unspecified SEDIMENTATION RATE Routine 09/03/2024 6: 06 AM EST Cellulitis, unspecified COMPREHENSIVE METABOLIC PANEL Routine 09/03/2024 6:06 AM EST Cellulitis, unspecified CBC AND DIFFERENTIAL Routine 09/03/2024 6:06 AM EST Cellulitis, unspecified C-REACTIVE PROTEIN Routine 09/01/2024 4: 51 AM EST Osteomyelitis of vertebra, sacral and sacrococcygeal region (CMS/HCC) SEDIMENTATION RATE Routine 09/01/2024 4: 51 AM EST Osteomyelitis of vertebra, sacral and sacrococcygeal region (CMS/HCC) COMPREHENSIVE METABOLIC PANEL Routine 09/01/2024 4:51 AM EST Osteomyelitis of vertebra, sacral and sacrococcygeal region (CMS/HCC) COMPLETE BLOOD COUNT Routine 09/01/2024 4:51 AM EST Osteomyelitis of vertebra, sacral and sacrococcygeal region (CMS/HCC) CBC WITH AUTO DIFFERENTIAL Routine 08/27/2024 6:52 AM EST Cellulitis, unspecified C-REACTIVE PROTEIN Routine 08/27/2024 6: 52 AM EST Cellulitis, unspecified SEDIMENTATION RATE Routine 08/27/2024 6: 52 AM EST Cellulitis, unspecified COMPREHENSIVE METABOLIC PANEL Routine 08/27/2024 6:52 AM EST Cellulitis, unspecified CBC AND DIFFERENTIAL Routine 08/27/2024 6:52 AM EST Cellulitis, unspecified C-REACTIVE PROTEIN Routine 08/25/2024 6: 18 AM EST Osteomyelitis of vertebra, sacral and sacrococcygeal region (CMS/HCC) SEDIMENTATION RATE Routine 08/25/2024 6: 18 AM EST Osteomyelitis of vertebra, sacral and sacrococcygeal region (CMS/HCC) COMPREHENSIVE METABOLIC PANEL Routine 08/25/2024 6:18 AM EST Osteomyelitis of vertebra, sacral and sacrococcygeal region (CMS/HCC) COMPLETE BLOOD COUNT Routine 08/25/2024 6:18 AM EST Osteomyelitis of vertebra, sacral and sacrococcygeal region (CMS/HCC) from Last 3 Months Results * Prostate specific antigen screen (10/10/2024 1:57 PM EST) PSA 1.19 0.00 - 4.00 ng/mL LAB CHEMISTRY METHOD 10/10/2024 3:33 PM [facility] Blood Venous blood specimen / Unknown Venipuncture / Unknown 10/10/2024 1:57 PM EST 10/10/2024 1:57 PM EST [facility] - 10/10/2024 3:33 PM EST The Siemens Advia Centaur Chemiluminescent Immunoassay is used. Results obtained with different assay methods or kits cannot be used interchangeably. Results cannot be interpreted as absolute evidence of the presence or absence of malignant disease. us Akin Bruno LAB BLOOD ORDERABLES Final Resul t [facility] [address] [place] [address], [place] [phone] * (ABNORMAL) Lipid panel with reflex to direct LDL (10/10/2024 1:57 PM EST) Cholesterol 180 0 - 200 mg/dL LAB CHEMISTRY METHOD 10/10/2024 3:25 PM [facility] Triglycerides 167(H) 0 - 150 mg/dL LAB CHEMISTRY METHOD 10/10/2024 3:25 PM [facility] HDL 57 >=40 mg/dL LAB CHEMISTRY METHOD 10/10/2024 3:25 PM [facility] LDL Calculated 90 0 - 100 mg/dL LAB CHEMISTRY METHOD 10/10/2024 3:25 PM [facility] VLDL Cholesterol Ryder 33.4 mg/dL LAB CHEMISTRY METHOD 10/10/2024 3:25 PM [facility] Non HDL Chol. (LDL+VLDL) 123 <145 mg/dL LAB CHEMISTRY METHOD 10/10/2024 3:25 PM [facility] Chol/HDL Ratio 3.2 0.0 - 4.4 LAB CHEMISTRY METHOD 10/10/2024 3:25 PM EST [facility] Blood Venous blood specimen / Unknown Venipuncture / Unknown 10/10/2024 1:57 PM EST 10/10/2024 1:57 PM EST [facility] LAB BLOOD ORDERABLES Final Resul t Performing Organization Address [facility]/ZIP Md de Phone Number [facility] [address] [place] [address], [place] [phone] * Hemoglobin A1c (10/10/2024 1:57 PM EST) Pathologist [facility] Hemoglobin A1C 5.8 <6.5 % LAB CHEMISTRY METHOD 10/10/2024 6:42 PM EST [facility] Mean Bld Glu Estim. 120 mg/dL LAB CHEMISTRY METHOD 10/10/2024 6:42 PM EST [facility] Blood Venous blood specimen / Unknown Venipuncture / Unknown 10/10/2024 1:57 PM EST 10/10/2024 1:57 PM EST [facility] LAB BLOOD ORDERABLES Final Resul t Performing Organization Address [facility] de Phone Number [facility] [address] [place] [address], [place] [phone] * (ABNORMAL) CBC auto differential (09/18/2024 10:48 AM EST) Only the most recent of4 resultswithin the time period is included. WBC 9.7 4.8 - 10.8 K/[facility] LAB HEMETOLOGY METHOD 09/18/2024 3:34 PM EST [facility] RBC 4.90 4.50 - 5.50 M/[facility] LAB HEMETOLOGY METHOD 09/18/2024 3:34 PM EST [facility] Hemoglobin 13.6 13.5 - 17.5 g/dL LAB HEMETOLOGY METHOD 09/18/2024 3:34 PM [facility] Hematocrit 43.3 42.0 - 54.0 % LAB HEMETOLOGY METHOD 09/18/2024 3:34 PM [facility] MCV 88.2 79.0 - 98.0 FL LAB HEMETOLOGY METHOD 09/18/2024 3:34 PM [facility] MCH 27.7 27.0 - 32.0 pcg LAB HEMETOLOGY METHOD 09/18/2024 3:34 PM [facility] MCHC 31.4(L) 32.0 - 37.0 g/dL LAB HEMETOLOGY METHOD 09/18/2024 3:34 PM [facility] RDW 15.8(H) 11.0 - 15.0 % LAB HEMETOLOGY METHOD 09/18/2024 3:34 PM [facility] Platelets 299 130 - 400 K/mcL LAB HEMETOLOGY METHOD 09/18/2024 3:34 PM [facility] MPV 11.3(H) 7.0 - 11.0 FL LAB HEMETOLOGY METHOD 09/18/2024 3:34 PM [facility] NRBC 0.0 <1.0 % LAB HEMETOLOGY METHOD 09/18/2024 3:34 PM [facility] NRBC Absolute 0.00 <0.10 K/mcL LAB HEMETOLOGY METHOD 09/18/2024 3:34 PM [facility] Neutrophils Relative 54.8 % LAB HEMETOLOGY METHOD 09/18/2024 3:34 PM [facility] Lymphocytes Relative 32.3 % LAB HEMETOLOGY METHOD 09/18/2024 3:34 PM [facility] Monocytes Relative 9.8 % LAB HEMETOLOGY METHOD 09/18/2024 3:34 PM [facility] Eosinophils Relative 2.3 % LAB HEMETOLOGY METHOD 09/18/2024 3:34 PM EST [facility] Basophils Relative 0.5 % LAB HEMETOLOGY METHOD 09/18/2024 3:34 PM [facility] Immature Granulocytes Relative 0.3 % LAB HEMETOLOGY METHOD 09/18/2024 3:34 PM EST [facility] Neutrophils Absolute 5.34 1.50 - 7.00 K/mcL LAB HEMETOLOGY METHOD 09/18/2024 3:34 PM EST [facility] Lymphocytes Absolute 3.14 1.00 - 5.00 K/mcL LAB HEMETOLOGY METHOD 09/18/2024 3:34 PM [facility] Monocytes Absolute 0.95 0.20 - 1.00 K/mcL LAB HEMETOLOGY METHOD 09/18/2024 3:34 PM EST [facility] Eosinophils Absolute 0.22 0.00 - 0.50 K/mcL LAB HEMETOLOGY METHOD 09/18/2024 3:34 PM EST [facility] Basophils Absolute 0.05 0.00 - 0.20 K/mcL LAB HEMETOLOGY METHOD 09/18/2024 3:34 PM [facility] Immature Granulocytes Absolute 0.03 0.00 - 0.03 K/mcL LAB HEMETOLOGY METHOD 09/18/2024 3:34 PM EST [facility] Blood Venous blood specimen / Unknown Venipuncture / Unknown 09/18/2024 10:48 AM EST 09/18/2024 10:48 AM EST us [facility] Carr LAB BLOOD ORDERABLES Final Resul t [facility] [address] [place] [address], * (ABNORMAL) Comprehensive metabolic panel (09/18/2024 10:48 AM EST) Only the most recent of7 resultswithin the time period is included. Sodium 143 133 - 145 mmol/L LAB CHEMISTRY METHOD 09/18/2024 3:35 PM [facility] Potassium 4.0 3.5 - 5.5 mmol/L LAB CHEMISTRY METHOD 09/18/2024 3:35 PM [facility] Chloride 113(H) 96 - 110 mmol/L LAB CHEMISTRY METHOD 09/18/2024 3:35 PM [facility] CO2 22 21 - 32 mmol/L LAB CHEMISTRY METHOD 09/18/2024 3:35 PM [facility] Anion Gap 8 3 - 11 LAB CHEMISTRY METHOD 09/18/2024 3:35 PM [facility] Glucose 99 70 - 100 mg/dL LAB CHEMISTRY METHOD 09/18/2024 3:35 PM [facility] BUN 13 5 - 25 mg/dL LAB CHEMISTRY METHOD 09/18/2024 3:35 PM [facility] Creatinine 0.96 0.70 - 1.30 mg/dL LAB CHEMISTRY METHOD 09/18/2024 3:35 PM [facility] eGFR 88 >=60 mL/min/1. 73m2 LAB CHEMISTRY METHOD 09/18/2024 3:35 PM [facility] Comment:Calculation based on the??Chronic Kidney Disease Epidemiology Collaboration (CKD-EPI) equation refit??without adjustment for race. BUN/Creatinine Ratio 13.5 LAB CHEMISTRY METHOD 09/18/2024 3:35 PM [facility] Calcium 9.4 8.5 - 10.5 mg/dL LAB CHEMISTRY METHOD 09/18/2024 3:35 PM [facility] AST (SGOT) 18 10 - 42 unit/L LAB CHEMISTRY METHOD 09/18/2024 3:35 PM [facility] ALT (SGPT) 25 10 - 60 unit/L LAB CHEMISTRY METHOD 09/18/2024 3:35 PM EST [facility] Alkaline Phosphatase 98 42 - 121 unit/L LAB CHEMISTRY METHOD 09/18/2024 3:35 PM EST [facility] Total Protein 6.6 6.0 - 8.0 g/dL LAB CHEMISTRY METHOD 09/18/2024 3:35 PM [facility] Albumin 3.4 3.2 - 5.0 g/dL LAB CHEMISTRY METHOD 09/18/2024 3:35 PM [facility] Total Bilirubin 0.4 0.0 - 1.4 mg/dL LAB CHEMISTRY METHOD 09/18/2024 3:35 PM [facility] Blood Venous blood specimen / Unknown Venipuncture / Unknown 09/18/2024 10:48 AM EST 09/18/2024 10:48 AM EST A[facility] Carr LAB BLOOD ORDERABLES Final Resul t [facility] [address] [place] [address], [place] [phone] * (ABNORMAL) Sedimentation rate (09/10/2024 8:06 AM EST) Only the most recent of6 resultswithin the time period is included. Sed Rate 48(H) 0 - 20 mm/hr LAB HEMETOLOGY METHOD 09/10/2024 12:43 PM EST [facility] Blood Venous blood specimen / Unknown Venipuncture / Unknown 09/10/2024 8:06 AM EST 09/10/2024 11:37 AM EST Clemente Davidson MD LAB BLOOD ORDERABLES Final Resul t [facility] [address] [place] [address], [place] [phone] * (ABNORMAL) C-reactive protein (09/10/2024 8:06 AM EST) Only the most recent of6 resultswithin the time period is included. [facility] C-Reactive Protein 0.63(H) <=0.50 mg/dL LAB CHEMISTRY METHOD 09/10/2024 12:40 PM [facility] Blood Venous blood specimen / Unknown Venipuncture / Unknown 09/10/2024 8:06 AM EST 09/10/2024 11:37 AM EST us Clemente Davidson MD LAB BLOOD ORDERABLES Final Resul t [facility] [address] [place] [address], [place] [phone] * (ABNORMAL) Complete blood count (09/08/2024 5:10 AM EST) Only the most recent of3 resultswithin the time period is included. [facility] WBC 10.1 4.8 - 10.8 K/mcL LAB HEMETOLOGY METHOD 09/08/2024 9:47 AM [facility] RBC 4.40(L) 4.50 - 5.50 M/mcL LAB HEMETOLOGY METHOD 09/08/2024 9:47 AM [facility] Hemoglobin 12.2(L) 13.5 - 17.5 g/dL LAB HEMETOLOGY METHOD 09/08/2024 9:47 AM [facility] Hematocrit 39.0(L) 42.0 - 54.0 % LAB HEMETOLOGY METHOD 09/08/2024 9:47 AM [facility] MCV 89.4 79.0 - 98.0 FL LAB HEMETOLOGY METHOD 09/08/2024 9:47 AM [facility] MCH 28.0 27.0 - 32.0 pcg LAB HEMETOLOGY METHOD 09/08/2024 9:47 AM [facility] MCHC 31.3(L) 32.0 - 37.0 g/dL LAB HEMETOLOGY METHOD 09/08/2024 9:47 AM EST [facility] RDW 15.8(H) 11.0 - 15.0 % LAB HEMETOLOGY METHOD 09/08/2024 9:47 AM [facility] Platelets 280 130 - 400 K/mcL LAB HEMETOLOGY METHOD 09/08/2024 9:47 AM EST [facility] MPV 11.5(H) 7.0 - 11.0 FL LAB HEMETOLOGY METHOD 09/08/2024 9:47 AM EST [facility] NRBC 0.0 <1.0 % LAB HEMETOLOGY METHOD 09/08/2024 9:47 AM [facility] NRBC Absolute 0.00 <0.10 K/mcL LAB HEMETOLOGY METHOD 09/08/2024 9:47 AM [facility] Blood Venous blood specimen / Unknown Venipuncture / Unknown 09/08/2024 5:10 AM EST 09/08/2024 9:13 AM EST us Clemente Davidson MD LAB BLOOD ORDERABLES Final Resul t [facility] [address] [place] [address], from Last 3 Months Insurance [employer] Care Teams Global Compensation Manager Relationship Specialty Start Date End Date Clemente Davidson MD [address], [phone] PCP - General Family Medicine 08/15/24
--- OUTSIDE RECORDS SUMMARY | 2024-11-21 17:48 | XMS_ITS | Encounter Summary ---
Author Organization [facility] Address [address] [place] [address] Care Team Providers Care [employer] Safety Program Coordinator Name Role Phone Clemente Davidson MD Primary Care Provider Encounter Details Date Type Department Care Team (Late st Contact Info) Description 08/12/2024 Lab Requisition [facility] - Main Lab [address] [facility] [place] [address] Clemente Davidson MD [address] [facility] [address] [place], [address] Deficiency of other vitamins; Cellulitis, unspecified Social History Tobacco Use Types [...] Procedure Name Priority Date/Time Associated Diagnosis Comments CBC WITH AUTO DIFFERENTIAL Routine 08/13/2024 6:32 AM EST Deficiency of other vitamins Cellulitis, unspecified VITAMIN D 25 HYDROXY Routine 08/13/2024 6:32 AM EST Deficiency of other vitamins Cellulitis, unspecified SEDIMENTATION RATE Routine 08/13/2024 6: 32 AM EST Deficiency of other vitamins Cellulitis, unspecified CBC AND DIFFERENTIAL Routine 08/13/2024 6:32 AM EST Deficiency of other vitamins Cellulitis, unspecified C-REACTIVE PROTEIN Routine 08/13/2024 6: 32 AM EST Deficiency of other vitamins Cellulitis, unspecified COMPREHENSIVE METABOLIC PANEL Routine 08/13/2024 6:32 AM EST Deficiency of other vitamins Cellulitis, unspecified documented in this encounter Results * Vitamin D 25 hydroxy (08/13/2024 6:32 AM EST) [facility] Vit D, 25-Hydroxy 51.2 30.0 - 80.0 ng/mL LAB CHEMISTRY METHOD 08/13/2024 12:09 PM EST [facility] Blood Venous blood specimen / Unknown Venipuncture / Unknown 08/13/2024 6:32 AM EST 08/13/2024 10:12 AM EST us Clemente Davidson MD LAB BLOOD ORDERABLES Final Resul t [facility] [address] [place] [address], [place] [phone] * (ABNORMAL) CBC auto differential (08/13/2024 6:32 AM EST) [facility] WBC 8.2 4.8 - 10.8 K/mcL LAB HEMETOLOGY METHOD 08/13/2024 10:[address] [facility] RBC 4.10(L) 4.50 - 5.50 M/mcL LAB HEMETOLOGY METHOD 08/13/2024 10:[address] [facility] Hemoglobin 11.6(L) 13.5 - 17.5 g/dL LAB HEMETOLOGY METHOD 08/13/2024 10:[address] [facility] Hematocrit 37.5(L) 42.0 - 54.0 % LAB HEMETOLOGY METHOD 08/13/2024 10:[address] [facility] MCV 90.8 79.0 - 98.0 FL LAB HEMETOLOGY METHOD 08/13/2024 10:[address] [facility] MCH 28.1 27.0 - 32.0 pcg LAB HEMETOLOGY METHOD 08/13/2024 10:[address] [facility] MCHC 30.9(L) 32.0 - 37.0 g/dL LAB HEMETOLOGY METHOD 08/13/2024 10:[address] [facility] RDW 15.2(H) 11.0 - 15.0 % LAB HEMETOLOGY METHOD 08/13/2024 10:[address] [facility] Platelets 309 130 - 400 K/mcL LAB HEMETOLOGY METHOD 08/13/2024 10:[address] [facility] MPV 11.4(H) 7.0 - 11.0 FL LAB HEMETOLOGY METHOD 08/13/2024 10:[address] [facility] NRBC 0.0 <1.0 % LAB HEMETOLOGY METHOD 08/13/2024 10:[address] [facility] NRBC Absolute 0.00 <0.10 K/mcL LAB HEMETOLOGY METHOD 08/13/2024 10:[address] [facility] Neutrophils Relative 33.4 % LAB HEMETOLOGY METHOD 08/13/2024 10:[address] [facility] Lymphocytes Relative 45.8 % LAB HEMETOLOGY METHOD 08/13/2024 10:[address] [facility] Monocytes Relative 15.1 % LAB HEMETOLOGY METHOD 08/13/2024 10:[address] [facility] Eosinophils Relative 4.7 % LAB HEMETOLOGY METHOD 08/13/2024 10:[address] [facility] Basophils Relative 0.9 % LAB HEMETOLOGY METHOD 08/13/2024 10:[address] [facility] Immature Granulocytes Relative 0.1 % LAB HEMETOLOGY METHOD 08/13/2024 10:[address] [facility] Neutrophils Absolute 2.74 1.50 - 7.00 K/[facility] LAB HEMETOLOGY METHOD 08/13/2024 10:53 AM EST [facility] Lymphocytes Absolute 3.74 1.00 - 5.00 K/[facility] LAB HEMETOLOGY METHOD 08/13/2024 10:53 AM EST [facility] Monocytes Absolute 1.23(H) 0.20 - 1.00 K/[facility] LAB HEMETOLOGY METHOD 08/13/2024 10:53 AM EST [facility] Eosinophils Absolute 0.38 0.00 - 0.50 K/[facility] LAB HEMETOLOGY METHOD 08/13/2024 10:53 AM EST [facility] Basophils Absolute 0.07 0.00 - 0.20 K/[facility] LAB HEMETOLOGY METHOD 08/13/2024 10:53 AM EST [facility] Immature Granulocytes Absolute 0.01 0.00 - 0.03 K/[facility] LAB HEMETOLOGY METHOD 08/13/2024 10:53 AM EST [facility] Blood Venous blood specimen / Unknown Venipuncture / Unknown 08/13/2024 6:32 AM EST 08/13/2024 10:12 AM EST us Clemente Davidson MD LAB BLOOD ORDERABLES Final Resul t [facility] [address] [place] [address], * (ABNORMAL) C-reactive protein (08/13/2024 6:32 AM EST) C-Reactive Protein 0.72(H) <=0.50 mg/dL LAB CHEMISTRY METHOD 08/13/2024 12:01 PM EST [facility] Blood Venous blood specimen / Unknown Venipuncture / Unknown 08/13/2024 6:32 AM EST 08/13/2024 10:12 AM EST Clemente Davidson MD LAB BLOOD ORDERABLES Final Resul t Performing Organization Address City/[facility]/ZIP Co de Phone Number [facility] [address] [place] [address], [place] [phone] * (ABNORMAL) Sedimentation rate (08/13/2024 6:32 AM EST) Sed Rate 62(H) 0 - 20 mm/hr LAB HEMETOLOGY METHOD 08/13/2024 11:11 AM EST [facility] Blood Venous blood specimen / Unknown Venipuncture / Unknown 08/13/2024 6:32 AM EST 08/13/2024 10:12 AM EST Clemente Davidson MD LAB BLOOD ORDERABLES Final Resul t Performing Organization Address City/[facility]/ZIP Co de Phone Number [facility] [address] [place] [address], [place] [phone] * (ABNORMAL) Comprehensive metabolic panel (08/13/2024 6:32 AM EST) Pathologist [facility] Sodium 144 133 - 145 mmol/L LAB CHEMISTRY METHOD 08/13/2024 12:[address] [facility] Potassium 4.1 3.5 - 5.5 mmol/L LAB CHEMISTRY METHOD 08/13/2024 12:[address] [facility] Chloride 112(H) 96 - 110 mmol/L LAB CHEMISTRY METHOD 08/13/2024 12:[address] [facility] CO2 22 21 - 32 mmol/L LAB CHEMISTRY METHOD 08/13/2024 12:[address] [facility] Anion Gap 10 3 - 11 LAB CHEMISTRY METHOD 08/13/2024 12:[address] [facility] Glucose 86 70 - 100 mg/dL LAB CHEMISTRY METHOD 08/13/2024 12:[address] [facility] BUN 13 5 - 25 mg/dL LAB CHEMISTRY METHOD 08/13/2024 12:[address] [facility] Creatinine 0.94 0.70 - 1.30 mg/dL LAB CHEMISTRY METHOD 08/13/2024 12:[address] [facility] eGFR 91 >=60 mL/min/1. 73m2 LAB CHEMISTRY METHOD 08/13/2024 12:[address] [facility] Comment:Calculation based on the??Chronic Kidney Disease Epidemiology Collaboration (CKD-EPI) equation refit??without adjustment for race. BUN/Creatinine Ratio 13.8 LAB CHEMISTRY METHOD 08/13/2024 12:[address] [facility] Calcium 9.1 8.5 - 10.5 mg/dL LAB CHEMISTRY METHOD 08/13/2024 12:[address] [facility] AST (SGOT) 14 10 - 42 unit/L LAB CHEMISTRY METHOD 08/13/2024 12:[address] [facility] ALT (SGPT) 18 10 - 60 unit/L LAB CHEMISTRY METHOD 08/13/2024 12:[address] [facility] Alkaline Phosphatase 72 42 - 121 unit/L LAB CHEMISTRY METHOD 08/13/2024 12:[address] [facility] Total Protein 6.0 6.0 - 8.0 g/dL LAB CHEMISTRY METHOD 08/13/2024 12:[address] [facility] Albumin 3.0(L) 3.2 - 5.0 g/dL LAB CHEMISTRY METHOD 08/13/2024 12:[address] [facility] Total Bilirubin 0.3 0.0 - 1.4 mg/dL LAB CHEMISTRY METHOD 08/13/2024 12:[address] [facility] Blood Venous blood specimen / Unknown Venipuncture / Unknown 08/13/2024 6:32 AM EST 08/13/2024 10:12 AM EST us Clemente Davidson MD LAB BLOOD ORDERABLES Final Resul t [facility] [place] [facility] [address] [place] [address], documented in this encounter Visit Diagnoses Diagnosis Deficiency of other vitamins Cellulitis, unspecified documented in this encounter Care Teams [employer] Safety Program Coordinator Relationship Specialty Start Date End Date Clemente Davidson MD [address] [place] [address] [address] [place], [address] PCP - General Family Medicine 08/15/24 documented as of this encounter
--- OUTSIDE RECORDS SUMMARY | 2024-11-21 17:48 | XMS_ITS | Continuity of Care Document ---
Author Organization [facility] - [facility], [facility] - [address] floor Address [address] [place] [address] Assessment No assessment recorded. Plan of Treatment Reminders Order Date Submit Date Provider Last Modified By Organization Details Last Modified Time Details Appointments MRI REVIEW ONLY 2024 11:45A M Tierra Brady PA-C Not available Not available Not available Lab None recorded. Referral None recorded. Procedures None recorded. Surgeries None recorded. Imaging XR, knee, 4 or more view - room 215 aron knee 4v cw 2024 025 [email or web address] [facility], [address], [address], [place], [address], 11/14/2024 11:27:11 MRI, knee, w/o contrast - left kneeL>R 2024 025 [email or web address] [facility] ([facility]), [address], [place], [address], 11/14/2024 11:27:11 MRI, knee, w/o contrast - right knee L>R 2024 025 [facility] ([facility]), [address] [facility], [place], [address], 11/14/2024 11:27:11 Medication Orders None recorded. Patient TargetsNo targets recorded. Patient InstructionsNo instructions recorded. Reason for Referral None Reported. Results Created Date Observation Date Name Description Value Unit Range Abnormal Flag Note LastModifiedBy Organization Detail LastModifiedTime 11/06/1911/06/2024 XR, knee, 4 or more view [email or web address] ?Encry pted=s hAaTro YD8dLq bEUv6g %2BXZw aYqtaq 0bqfl% 2Fg9IQ a4ajBk vP9nXo QUaueC m3YtLR FvZlgJ JJ8mAn HZtai3 1u4000 AC0Kqb HiHVaG nKiQtr MwF INTERFACE [facility] [address], [place], [address], 11/06/2024 11:36:14 11/06/1911/06/2024 XR, knee, 4 or more view [email or web address] ?Encry pted=s hAaTro YD8dLq bEUv6g %2BXZw aYqtaq 0bqfl% 2Fg9IQ a4ajBk vP9nXo QUaueC m3YtLR FvZlgJ JJ8mAn HZtai3 [id number] AC0Kqb HiHVaG nKiQtr MwF INTERFACE [facility] [address], [place], [address], 11/06/2024 11:36:16 Result Notes None recorded. Problems Name Problem SNOMED Code Status Onset Date Resolution Date Notes Provider Name and Address Organization Details Recorded Time No complaints 654025241 Active Status : 'A'; Not Available [facility] 4 09:13:01 Pain of knee region 3034454019 Active 2024 lamonte moya [facility] 5 11:22:30 Bilateral hip joint pain 5754859551341 9100 Active 2023 lamonte moya [facility] 4 11:46:26 Problem Notes None recorded. Procedures Surgical History Date Name Laterality Status Provider Name and Address Organization Details Recorded Time 4 Hip Kenalog 1cc Injection, Bilateral completed Tierra Brady PA-C [address], [place], [address], [facility] 01/31/2024 21:20:13 4 Hip Kenalog 1cc Injection, Bilateral completed Tierra Brady PA-C [address] [facility] [address], [place], [address], [facility] 12/13/2023 15:45:43 Imaging Results None recorded. Procedure Notes None recorded. Medical Equipment None Reported. Medications Name Sig Start Date Stop Date Status Note LastModified by Organization Details LastModified Time atorvastati n 40 mg tablet TAKE 1 TABLET BY MOUTH EVERY DAY FOR 90 DAYS active Not Available Not Available No t Available atorvastati n 20 mg tablet TAKE 1 TABLET BY MOUTH EVERY DAY 11/06 completed Not Available Not Available Not Available azithromyci n 250 mg tablet TAKE 2 TABLETS BY MOUTH TODAY, THEN TAKE 1 TABLET DAILY FOR 4 DAYS DIRECTED 11/06 completed Not Available Not Available Not Available ibuprofen 800 mg tablet TAKE 1 TABLET BY MOUTH EVERY 8 HOURS WITH FOOD OR MILK NEEDED FOR 5 DAYS active Not Available Not Available No t Available meloxicam 15 mg tablet TAKE 1 TABLET BY MOUTH ONCE A DAY WITH FOOD 11/06 completed Not Available Not Available Not Available prednisone 20 mg tablet TAKE 2 TABLETS BY MOUTH EVERY DAY FOR 5 DAYS 11/06 completed Not Available Not Available Not Available thiamine HCl (vitamin B1) 100 mg tablet TAKE 1 TABLET BY MOUTH EVERY DAY FOR 90 DAYS active Not Available Not Available No t Available amlodipine 2.5 mg tablet TAKE 1 TABLET BY MOUTH EVERY DAY FOR 30 DAYS 11/06 completed Not Available Not Available Not Available pantoprazol e 40 mg tablet,teresa yed release TAKE 1 TABLET BY MOUTH EVERY DAY 11/06 completed Not Available Not Available Not Available gabapentin 300 mg capsule TAKE 1 CAPSULE BY MOUTH THREE TIMES A DAY 11/06 completed Not Available Not Available Not Available aspirin 81 mg chewable tablet TAKE 1 TABLET BY MOUTH EVERY DAY FOR 90 DAYS active Not Available Not Available No t Available folic acid 1 mg tablet TAKE 1 TABLET BY MOUTH EVERY DAY FOR 90 DAYS active Not Available Not Available No t Available albuterol sulfate HFA 90 mcg/actuati on aerosol inhaler INHALE 1 PUFF INTO THE LUNGS EVERY 4 HOURS NEEDED FOR 7 DAYS 11/06 completed Not Available Not Available Not Available lisinopril 2.5 mg tablet TAKE 1 TABLET BY MOUTH EVERY DAY FOR 30 DAYS 11/06 completed Not Available Not Available Not Available oxycodone 5 mg tablet TAKE 1 TABLET BY MOUTH EVERY 6 HOURS NEEDED FOR SEVERE PAIN 11/06 completed Not Available Not Available Not Available Vitamin B-12 ER 1,000 mcg tablet,exte nded release TAKE 1 TABLET BY MOUTH EVERY DAY FOR 90 DAYS active Not Available Not Available No t Available midodrine 10 mg tablet TAKE 1 TABLET BY MOUTH THREE TIMES A DAY 90 DAYS active Not Available Not Available No t Available diclofenac 1 % topical gel APPLY 4 G TO AFFECTED AREA NEEDED FOR PAIN EXTERNALL Y 4 TIMES A DAY 30 DAYS 11/06 completed Not Available Not Available Not Available Xarelto 10 mg tablet Take 1 tablet every day by oral route. active Not Available Not Available No t Available Xarelto 20 mg tablet 11/06 completed Not Available Not Available Not Available Vitals Date Recorded Body height Body mass index (BMI) Body weight Provider Name and Address Organization Details Last Updated DateTime 11/06/2024 182.88 cm 24.7 kg/m2 12154.81 g lamonte [facility] 11/06/2024 11:19:31 Social History None recorded. Functional Status None recorded. Mental Status None recorded. Family History Nothing Reported. Medical History No medical history recorded. Past Encounters Encounter ID Performer Location Encounter Start Date Encounter Closed Date Diagnosis/Indication Diagnosis SNOMED-CT Code Diagnosis ICD10 Code Diagnosis Note [id number] [facility] [address] [facility] [place] [address] 11/06/2024 10:48:11 11/14/2024 11:27:11 Pain of knee region 9789366073 M25.561 M25.562 Primary go narthrosis, bilateral 801163193 M17.0 Health Concerns Section Related Observation LastModified by Organization Detai ls LastModified Time None Recorded Concern Status LastModified by Organization Details LastModified Time None Recorded Payers Encounter Date Sequence Insurance Name Policy Number Policy Saavedra Covered Member ID Saavedra Member ID Guarantor Name 11/06/2024 2 [place] [facility] Emeka Ballesteros [id number] Emeka Ballesteros 11/06/2024 1 [employer] - CHOICE (POS II) [id number] Emeka Ballesteros [id number] Emeka Ballesteros Notes Date Note Type Note Provider Name and Address Organization Details Recorded Time 11/06/2024 text/html I am seeing the patient today under the supervision of Dr. Dodson who was available but who did not see the patient. HPI: Emeka presents to the office today for an evaluation of his bilateral knees. He has been experiencing pain in his knees for the past 6 to 8 months. 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 In the fall he had a PICC line placed and received antibiotics under the direction of infectious disease. He indicates that his ulcer and osteomyelitis have resolved. He is unsure if being more sedentary aggravated his knee pain. Currently the left knee is more painful than the right. He describes his pain as being along the medial aspect of the joint. Symptoms are worse with weightbearing activities and rotational movements. He has been experiencing mechanical symptoms of catching and instability. He received pain medication for short time through his primary care physician. He is unable to take NSAIDs secondary to being on an oral anticoagulant. He also had acupuncture treatments and physical therapy without any benefit. Due to the persistent nature of his symptoms he is here today for treatment recommendations. PMH/PSH/MEDS/ALL/FMH/ SOC HX/ROS are reviewed in detail per my medical intake sheet. General Exam: Vital signs are as noted below Mental status: Alert and lucid. Normal insight, affect and grooming. FURNACE COMBUSTION TESTER: Gross motor coordination is intact. No spasticity or clonus noted. EXAMINATION: The patient is well appearing and in no apparent distress. Alert and oriented x3. Gait is antalgic. {{Right knee reveals Left knee reveals Bilateral knees reveal*}} {{varus valgus no*}} deformity upon inspection. No joint effusion, edema, erythema, ecchymosis, or lesions. Neurovascularly intact. Tenderness present along the {{medial* lateral med ial and lateral}} joint line. ROM is from 0-120 degrees. No patellofemoral crepitus noted. Stability intact with anterior, posterior, and varus/valgus stress at both 0 and 30 degrees of flexion. Positive flexion pinch and Steinmann's. 5/5 strength. Calf/leg compartments soft and compressible. Bilateral hip exam reveals painless passive range of motion. No instability. 5/5 strength. X-rays ordered, obtained and reviewed at [facility] today include {{4 views of bilateral knees.*}} Images reveal the joint spaces to be well-maintained with only minimal degeneration noted. No acute fracture or lesion. IMPRESSION: {{Right Left Bilatera l*}} knee mild degenerative changes with concern for a medial meniscus tear PLAN: The patient continues to suffer from bilateral knee pain despite rest, activity modification, prescription medication, physical therapy, and acupuncture treatments. Due to the persistent nature of his pain I will order a MRI of bilateral knees to rule out a medial meniscus tear or other internal derangement. I will see him back in the office soon after the scans are performed. Additional treatment recommendations will be made at that time. He declined cortisone injections today. All questions answered. Tierra Brady PA-C [address] [facility] [address], [place], [address], [facility] 11/08/2024 14:59:03
--- OUTSIDE RECORDS SUMMARY | 2024-11-21 17:48 | XMS_ITS | Encounter Summary ---
Author Organization [facility] Address [address] [place] [address] Care Team Providers Care Bed Control Specialist Name Role Phone Clemente Davidson MD Primary Care Provider [phone] Encounter Details Date Type Department Care Team (Late st Contact Info) Description 08/19/2024 Lab Requisition [facility] - Main Lab [address] [facility] [place] [address] Clemente Davidson MD [address] [facility] [address] [place], [address] Cellulitis, unspecified Social History Tobacco Use [...] Diagnosis Comments CBC WITH AUTO DIFFERENTIAL Routine 08/20/2024 5:49 AM EST Cellulitis, unspecified SEDIMENTATION RATE Routine 08/20/2024 5: 49 AM EST Cellulitis, unspecified CBC AND DIFFERENTIAL Routine 08/20/2024 5:49 AM EST Cellulitis, unspecified C-REACTIVE PROTEIN Routine 08/20/2024 5: 49 AM EST Cellulitis, unspecified COMPREHENSIVE METABOLIC PANEL Routine 08/20/2024 5:49 AM EST Cellulitis, unspecified documented in this encounter Results * (ABNORMAL) CBC auto differential (08/20/2024 5:49 AM EST) WBC 9.4 4.8 - 10.8 K/mcL LAB HEMETOLOGY METHOD 08/20/2024 9:35 AM [facility] RBC 4.20(L) 4.50 - 5.50 M/mcL LAB HEMETOLOGY METHOD 08/20/2024 9:35 AM [facility] Hemoglobin 11.7(L) 13.5 - 17.5 g/dL LAB HEMETOLOGY METHOD 08/20/2024 9:35 AM [facility] Hematocrit 38.2(L) 42.0 - 54.0 % LAB HEMETOLOGY METHOD 08/20/2024 9:35 AM [facility] MCV 91.2 79.0 - 98.0 FL LAB HEMETOLOGY METHOD 08/20/2024 9:35 AM [facility] MCH 27.9 27.0 - 32.0 pcg LAB HEMETOLOGY METHOD 08/20/2024 9:35 AM [facility] MCHC 30.6(L) 32.0 - 37.0 g/dL LAB HEMETOLOGY METHOD 08/20/2024 9:35 AM [facility] RDW 15.5(H) 11.0 - 15.0 % LAB HEMETOLOGY METHOD 08/20/2024 9:35 AM [facility] Platelets 304 130 - 400 K/mcL LAB HEMETOLOGY METHOD 08/20/2024 9:35 AM [facility] MPV 11.3(H) 7.0 - 11.0 FL LAB HEMETOLOGY METHOD 08/20/2024 9:35 AM [facility] NRBC 0.0 <1.0 % LAB HEMETOLOGY METHOD 08/20/2024 9:35 AM [facility] NRBC Absolute 0.00 <0.10 K/mcL LAB HEMETOLOGY METHOD 08/20/2024 9:35 AM [facility] Neutrophils Relative 48.4 % LAB HEMETOLOGY METHOD 08/20/2024 9:35 AM [facility] Lymphocytes Relative 36.3 % LAB HEMETOLOGY METHOD 08/20/2024 9:35 AM [facility] Monocytes Relative 9.4 % LAB HEMETOLOGY METHOD 08/20/2024 9:35 AM [facility] Eosinophils Relative 5.1 % LAB HEMETOLOGY METHOD 08/20/2024 9:35 AM [facility] Basophils Relative 0.6 % LAB HEMETOLOGY METHOD 08/20/2024 9:35 AM [facility] Immature Granulocytes Relative 0.2 % LAB HEMETOLOGY METHOD 08/20/2024 9:35 AM [facility] Neutrophils Absolute 4.52 1.50 - 7.00 K/mcL LAB HEMETOLOGY METHOD 08/20/2024 9:35 AM [facility] Lymphocytes Absolute 3.40 1.00 - 5.00 K/mcL LAB HEMETOLOGY METHOD 08/20/2024 9:35 AM [facility] Monocytes Absolute 0.88 0.20 - 1.00 K/mcL LAB HEMETOLOGY METHOD 08/20/2024 9:35 AM [facility] Eosinophils Absolute 0.48 0.00 - 0.50 K/mcL LAB HEMETOLOGY METHOD 08/20/2024 9:35 AM [facility] Basophils Absolute 0.06 0.00 - 0.20 K/mcL LAB HEMETOLOGY METHOD 08/20/2024 9:35 AM [facility] Immature Granulocytes Absolute 0.02 0.00 - 0.03 K/mcL LAB HEMETOLOGY METHOD 08/20/2024 9:35 AM EST [facility] Blood Venous blood specimen / Unknown Venipuncture / Unknown 08/20/2024 5:49 AM EST 08/20/2024 8:54 AM EST us Clemente Davidson MD LAB BLOOD ORDERABLES Final Resul t Performing Organization Address City/[facility]/ZIP Co de Phone Number [facility] [address] [place] [address], [place] [phone] * (ABNORMAL) C-reactive protein (08/20/2024 5:49 AM EST) C-Reactive Protein 0.72(H) <=0.50 mg/dL LAB CHEMISTRY METHOD 08/20/2024 10:05 AM EST [facility] Blood Venous blood specimen / Unknown Venipuncture / Unknown 08/20/2024 5:49 AM EST 08/20/2024 8:54 AM EST us Clemente Davidson MD LAB BLOOD ORDERABLES Final Resul t Performing Organization Address [facility] Co de Phone Number [facility] [address] [place] [address], [place] [phone] * (ABNORMAL) Sedimentation rate (08/20/2024 5:49 AM EST) Sed Rate 37(H) 0 - 20 mm/hr LAB HEMETOLOGY METHOD 08/20/2024 9:40 AM EST [facility] Blood Venous blood specimen / Unknown Venipuncture / Unknown 08/20/2024 5:49 AM EST 08/20/2024 8:54 AM EST us Clemente Davidson MD LAB BLOOD ORDERABLES Final Resul t Performing Organization Address City/[facility]/ZIP Co de Phone Number [facility] [address] [place] [address], [place] [phone] * (ABNORMAL) Comprehensive metabolic panel (08/20/2024 5:49 AM EST) Sodium 144 133 - 145 mmol/L LAB CHEMISTRY METHOD 08/20/2024 10:06 AM [facility] Potassium 4.1 3.5 - 5.5 mmol/L LAB CHEMISTRY METHOD 08/20/2024 10:06 AM [facility] Chloride 113(H) 96 - 110 mmol/L LAB CHEMISTRY METHOD 08/20/2024 10:06 AM [facility] CO2 24 21 - 32 mmol/L LAB CHEMISTRY METHOD 08/20/2024 10:06 AM [facility] Anion Gap 7 3 - 11 LAB CHEMISTRY METHOD 08/20/2024 10:06 AM [facility] Glucose 124(H) 70 - 100 mg/dL LAB CHEMISTRY METHOD 08/20/2024 10:06 AM [facility] BUN 10 5 - 25 mg/dL LAB CHEMISTRY METHOD 08/20/2024 10:06 AM [facility] Creatinine 0.89 0.70 - 1.30 mg/dL LAB CHEMISTRY METHOD 08/20/2024 10:06 AM [facility] eGFR 96 >=60 mL/min/1. 73m2 LAB CHEMISTRY METHOD 08/20/2024 10:06 AM [facility] Comment:Calculation based on the??Chronic Kidney Disease Epidemiology Collaboration (CKD-EPI) equation refit??without adjustment for race. BUN/Creatinine Ratio 11.2 LAB CHEMISTRY METHOD 08/20/2024 10:06 AM [facility] Calcium 9.3 8.5 - 10.5 mg/dL LAB CHEMISTRY METHOD 08/20/2024 10:06 AM [facility] AST (SGOT) 13 10 - 42 unit/L LAB CHEMISTRY METHOD 08/20/2024 10:06 AM [facility] ALT (SGPT) 17 10 - 60 unit/L LAB CHEMISTRY METHOD 08/20/2024 10:06 AM EST [facility] Alkaline Phosphatase 79 42 - 121 unit/L LAB CHEMISTRY METHOD 08/20/2024 10:06 AM [facility] Total Protein 6.0 6.0 - 8.0 g/dL LAB CHEMISTRY METHOD 08/20/2024 10:06 AM [facility] Albumin 3.0(L) 3.2 - 5.0 g/dL LAB CHEMISTRY METHOD 08/20/2024 10:06 AM [facility] Total Bilirubin 0.2 0.0 - 1.4 mg/dL LAB CHEMISTRY METHOD 08/20/2024 10:06 AM [facility] Blood Venous blood specimen / Unknown Venipuncture / Unknown 08/20/2024 5:49 AM EST 08/20/2024 8:54 AM EST us Clemente Davidson MD LAB BLOOD ORDERABLES Final Resul t [facility] [address] [place] [address], documented in this encounter Visit Diagnoses Diagnosis Cellulitis, unspecified documented in this encounter Care Teams Bed Control Specialist Relationship Specialty Start Date End Date Clemente Davidson MD [address] [place] [phone] PCP - General Family Medicine 08/15/24 documented as of this encounter
--- OUTSIDE RECORDS SUMMARY | 2024-11-21 17:48 | XMS_ITS | Encounter Summary ---
Author Organization [facility] Address [address] [place] [address] Care Team Providers Care Fire Extinguisher Charger Name Role Phone Clemente Davidson MD Primary Care Provider [phone] Encounter Details Date Type Department Care Team (Late st Contact Info) Description 08/26/[address] [facility] - Main Lab [address] [facility] [place] [address] Clemente Davidson MD [address] [facility] [address] [place], [address] Cellulitis, unspecified Social History Tobacco Use [...] Diagnosis Comments CBC WITH AUTO DIFFERENTIAL Routine 08/27/2024 6:52 AM EST Cellulitis, unspecified SEDIMENTATION RATE Routine 08/27/2024 6 :52 AM EST Cellulitis, unspecified CBC AND DIFFERENTIAL Routine 08/27/2024 6:52 AM EST Cellulitis, unspecified C-REACTIVE PROTEIN Routine 08/27/2024 6: 52 AM EST Cellulitis, unspecified COMPREHENSIVE METABOLIC PANEL Routine 08/27/2024 6:52 AM EST Cellulitis, unspecified documented in this encounter Results * (ABNORMAL) CBC auto differential (08/27/2024 6:52 AM EST) [facility] Signature WBC 9.8 4.8 - 10.8 K/mcL LAB HEMETOLOGY METHOD 08/27/2024 10:[address] [facility] RBC 4.40(L) 4.50 - 5.50 M/mcL LAB HEMETOLOGY METHOD 08/27/2024 10:[address] [facility] Hemoglobin 12.2(L) 13.5 - 17.5 g/dL LAB HEMETOLOGY METHOD 08/27/2024 10:[address] [facility] Hematocrit 39.4(L) 42.0 - 54.0 % LAB HEMETOLOGY METHOD 08/27/2024 10:[address] [facility] MCV 90.0 79.0 - 98.0 FL LAB HEMETOLOGY METHOD 08/27/2024 10:[address] [facility] MCH 27.9 27.0 - 32.0 pcg LAB HEMETOLOGY METHOD 08/27/2024 10:[address] [facility] MCHC 31.0(L) 32.0 - 37.0 g/dL LAB HEMETOLOGY METHOD 08/27/2024 10:[address] [facility] RDW 15.5(H) 11.0 - 15.0 % LAB HEMETOLOGY METHOD 08/27/2024 10:[address] [facility] Platelets 333 130 - 400 K/mcL LAB HEMETOLOGY METHOD 08/27/2024 10:[address] [facility] MPV 10.6 7.0 - 11.0 FL LAB HEMETOLOGY METHOD 08/27/2024 10:[address] [facility] NRBC 0.0 <1.0 % LAB HEMETOLOGY METHOD 08/27/2024 10:[address] [facility] NRBC Absolute 0.00 <0.10 K/mcL LAB HEMETOLOGY METHOD 08/27/2024 10:[address] [facility] Neutrophils Relative 49.0 % LAB HEMETOLOGY METHOD 08/27/2024 10:[address] [facility] Lymphocytes Relative 34.3 % LAB HEMETOLOGY METHOD 08/27/2024 10:[address] [facility] Monocytes Relative 11.1 % LAB HEMETOLOGY METHOD 08/27/2024 10:[address] [facility] Eosinophils Relative 4.9 % LAB HEMETOLOGY METHOD 08/27/2024 10:[address] [facility] Basophils Relative 0.5 % LAB HEMETOLOGY METHOD 08/27/2024 10:[address] [facility] Immature Granulocytes Relative 0.2 % LAB HEMETOLOGY METHOD 08/27/2024 10:[address] [facility] Neutrophils Absolute 4.78 1.50 - 7.00 K/mcL LAB HEMETOLOGY METHOD 08/27/2024 10:[address] [facility] Lymphocytes Absolute 3.35 1.00 - 5.00 K/mcL LAB HEMETOLOGY METHOD 08/27/2024 10:[address] [facility] Monocytes Absolute 1.08(H) 0.20 - 1.00 K/mcL LAB HEMETOLOGY METHOD 08/27/2024 10:[address] [facility] Eosinophils Absolute 0.48 0.00 - 0.50 K/mcL LAB HEMETOLOGY METHOD 08/27/2024 10:[address] [facility] Basophils Absolute 0.05 0.00 - 0.20 K/mcL LAB HEMETOLOGY METHOD 08/27/2024 10:[address] [facility] Immature Granulocytes Absolute 0.02 0.00 - 0.03 K/mcL LAB HEMETOLOGY METHOD 08/27/2024 10:15 AM EST [facility] Blood Venous blood specimen / Unknown Venipuncture / Unknown 08/27/2024 6:52 AM EST 08/27/2024 10:05 AM EST us Clemente Davidson MD LAB BLOOD ORDERABLES Final Resul t Performing Organization Address [facility]/ZIP Co de Phone Number [facility] [address] [place] [address], [place] [phone] * (ABNORMAL) C-reactive protein (08/27/2024 6:52 AM EST) C-Reactive Protein 0.82(H) <=0.50 mg/dL LAB CHEMISTRY METHOD 08/27/2024 10:52 AM EST [facility] Blood Venous blood specimen / Unknown Venipuncture / Unknown 08/27/2024 6:52 AM EST 08/27/2024 9:58 AM EST us Clemente Davidson MD LAB BLOOD ORDERABLES Final Resul t Performing Organization Address [facility] Co de Phone Number [facility] [address] [place] [address], [place] [phone] * (ABNORMAL) Sedimentation rate (08/27/2024 6:52 AM EST) Sed Rate 59(H) 0 - 20 mm/hr LAB HEMETOLOGY METHOD 08/27/2024 10:22 AM EST [facility] Blood Venous blood specimen / Unknown Venipuncture / Unknown 08/27/2024 6:52 AM EST 08/27/2024 10:05 AM EST us Clemente Davidson MD LAB BLOOD ORDERABLES Final Resul t Performing Organization Address City/[facility]/ZIP Co de Phone Number [facility] [address] [place] [address], [place] [phone] * (ABNORMAL) Comprehensive metabolic panel (08/27/2024 6:52 AM EST) Sodium 142 133 - 145 mmol/L LAB CHEMISTRY METHOD 08/27/2024 11:[address] [facility] Potassium 4.5 3.5 - 5.5 mmol/L LAB CHEMISTRY METHOD 08/27/2024 11:[address] [facility] Chloride 111(H) 96 - 110 mmol/L LAB CHEMISTRY METHOD 08/27/2024 11:[address] [facility] CO2 22 21 - 32 mmol/L LAB CHEMISTRY METHOD 08/27/2024 11:[address] [facility] Anion Gap 9 3 - 11 LAB CHEMISTRY METHOD 08/27/2024 11:[address] [facility] Glucose 90 70 - 100 mg/dL LAB CHEMISTRY METHOD 08/27/2024 11:[address] [facility] BUN 13 5 - 25 mg/dL LAB CHEMISTRY METHOD 08/27/2024 11:[address] [facility] Creatinine 0.96 0.70 - 1.30 mg/dL LAB CHEMISTRY METHOD 08/27/2024 11:[address] [facility] eGFR 89 >=60 mL/min/1. 73m2 LAB CHEMISTRY METHOD 08/27/2024 11:[address] [facility] Comment:Calculation based on the??Chronic Kidney Disease Epidemiology Collaboration (CKD-EPI) equation refit??without adjustment for race. BUN/Creatinine Ratio 13.5 LAB CHEMISTRY METHOD 08/27/2024 11:[address] [facility] Calcium 9.6 8.5 - 10.5 mg/dL LAB CHEMISTRY METHOD 08/27/2024 11:[address] [facility] AST (SGOT) 15 10 - 42 unit/L LAB CHEMISTRY METHOD 08/27/2024 11:[address] [facility] ALT (SGPT) 20 10 - 60 unit/L LAB CHEMISTRY METHOD 08/27/2024 11:[address] [facility] Alkaline Phosphatase 78 42 - 121 unit/L LAB CHEMISTRY METHOD 08/27/2024 11:[address] [facility] Total Protein 6.2 6.0 - 8.0 g/dL LAB CHEMISTRY METHOD 08/27/2024 11:[address] [facility] Albumin 3.1(L) 3.2 - 5.0 g/dL LAB CHEMISTRY METHOD 08/27/2024 11:[address] [facility] Total Bilirubin 0.3 0.0 - 1.4 mg/dL LAB CHEMISTRY METHOD 08/27/2024 11:[address] [facility] Blood Venous blood specimen / Unknown Venipuncture / Unknown 08/27/2024 6:52 AM EST 08/27/2024 9:58 AM EST us Clemente Davidson MD LAB BLOOD ORDERABLES Final Resul t [facility] [address] [place] [address], documented in this encounter Visit Diagnoses Diagnosis Cellulitis, unspecified documented in this encounter Care Teams Fire Extinguisher Charger Relationship Specialty Start Date End Date Clemente Davidson MD [address] [place] [phone] PCP - General Family Medicine 08/15/24 documented as of this encounter
--- OUTSIDE RECORDS SUMMARY | 2024-11-21 17:48 | XMS_ITS | Encounter Summary ---
Author Organization [facility] Address [address] [place] [phone] Care Team Providers Care Solar Project Coordination Specialist Name Role Phone Clemente Davidson MD Primary Care Provider [phone] Encounter Details Date Type Department Care Team (Late st Contact Info) Description 08/02/2024 Lab Requisition [facility] - Main Lab [address] [facility] [place] [address] Clemente Davidson MD 38 [facility] [address] [place], [phone] Osteomyelitis of vertebra, sacral and sacrococcygeal [...] Associated Diagnosis Comments TRAVEL PHLEBOTOMY FEE Routine 08/04/2024 5:05 AM EST Osteomyelitis of vertebra, sacral and sacrococcygeal region (CMS/HCC) SEDIMENTATION RATE Routine 08/04/2024 5: 05 AM EST Osteomyelitis of vertebra, sacral and sacrococcygeal region (CMS/HCC) COMPLETE BLOOD COUNT Routine 08/04/2024 5:05 AM EST Osteomyelitis of vertebra, sacral and sacrococcygeal region (CMS/HCC) COMPREHENSIVE METABOLIC PANEL Routine 08/04/2024 5:05 AM EST Osteomyelitis of vertebra, sacral and sacrococcygeal region (CMS/HCC) documented in this encounter Results * Travel phlebotomy fee (08/04/2024 5:05 AM EST) [facility] TRAVEL PHLEBOTOMY FEE Completed 08/04/2024 10:01 AM EST [facility] Blood Venous blood specimen / Unknown Venipuncture / Unknown 08/04/2024 5:05 AM EST 08/04/2024 9:56 AM EST Clemente Davidson MD LAB BLOOD ORDERABLES Final Resul t Performing Organization Address [facility]/ZIP Co de Phone Number [facility] [address] [place] [address], [place] [phone] * (ABNORMAL) Sedimentation rate (08/04/2024 5:05 AM EST) [facility] Sed Rate 45(H) 0 - 20 mm/hr LAB HEMETOLOGY METHOD 08/04/2024 10:38 AM EST [facility] Blood Venous blood specimen / Unknown Venipuncture / Unknown 08/04/2024 5:05 AM EST 08/04/2024 9:56 AM EST us Clemente Davidson MD LAB BLOOD ORDERABLES Final Resul t [facility] [address] [place] [address], [place] [phone] * Comprehensive metabolic panel (08/04/2024 5:05 AM EST) [facility] Sodium 141 133 - 145 mmol/L LAB CHEMISTRY METHOD 08/04/2024 11:00 AM EST [facility] Potassium 4.7 3.5 - 5.5 mmol/L LAB CHEMISTRY METHOD 08/04/2024 11:00 AM EST [facility] Chloride 109 96 - 110 mmol/L LAB CHEMISTRY METHOD 08/04/2024 11:00 AM [facility] CO2 25 21 - 32 mmol/L LAB CHEMISTRY METHOD 08/04/2024 11:00 AM [facility] Anion Gap 7 3 - 11 LAB CHEMISTRY METHOD 08/04/2024 11:00 AM [facility] Glucose 88 70 - 100 mg/dL LAB CHEMISTRY METHOD 08/04/2024 11:00 AM [facility] BUN 10 5 - 25 mg/dL LAB CHEMISTRY METHOD 08/04/2024 11:00 AM [facility] Creatinine 0.98 0.70 - 1.30 mg/dL LAB CHEMISTRY METHOD 08/04/2024 11:00 AM [facility] eGFR 87 >=60 mL/min/1. 73m2 LAB CHEMISTRY METHOD 08/04/2024 11:00 AM [facility] Comment:Calculation based on the??Chronic Kidney Disease Epidemiology Collaboration (CKD-EPI) equation refit??without adjustment for race. BUN/Creatinine Ratio 10.2 LAB CHEMISTRY METHOD 08/04/2024 11:00 AM [facility] Calcium 9.5 8.5 - 10.5 mg/dL LAB CHEMISTRY METHOD 08/04/2024 11:00 AM [facility] AST (SGOT) 18 10 - 42 unit/L LAB CHEMISTRY METHOD 08/04/2024 11:00 AM [facility] ALT (SGPT) 22 10 - 60 unit/L LAB CHEMISTRY METHOD 08/04/2024 11:00 AM [facility] Alkaline Phosphatase 79 42 - 121 unit/L LAB CHEMISTRY METHOD 08/04/2024 11:00 AM [facility] Total Protein 6.4 6.0 - 8.0 g/dL LAB CHEMISTRY METHOD 08/04/2024 11:00 AM [facility] Albumin 3.3 3.2 - 5.0 g/dL LAB CHEMISTRY METHOD 08/04/2024 11:00 AM [facility] Total Bilirubin 0.3 0.0 - 1.4 mg/dL LAB CHEMISTRY METHOD 08/04/2024 11:00 AM [facility] Blood Venous blood specimen / Unknown Venipuncture / Unknown 08/04/2024 5:05 AM EST 08/04/2024 9:56 AM EST us Clemente Davidson MD LAB BLOOD ORDERABLES Final Resul t [facility] [address] [place] [address], * (ABNORMAL) Complete blood count (08/04/2024 5:05 AM EST) WBC 10.6 4.8 - 10.8 K/mcL LAB HEMETOLOGY METHOD 08/04/2024 10:32 AM [facility] RBC 4.20(L) 4.50 - 5.50 M/mcL LAB HEMETOLOGY METHOD 08/04/2024 10:32 AM [facility] Hemoglobin 12.0(L) 13.5 - 17.5 g/dL LAB HEMETOLOGY METHOD 08/04/2024 10:32 AM [facility] Hematocrit 39.2(L) 42.0 - 54.0 % LAB HEMETOLOGY METHOD 08/04/2024 10:32 AM [facility] MCV 92.7 79.0 - 98.0 FL LAB HEMETOLOGY METHOD 08/04/2024 10:32 AM [facility] MCH 28.4 27.0 - 32.0 pcg LAB HEMETOLOGY METHOD 08/04/2024 10:32 AM [facility] MCHC 30.6(L) 32.0 - 37.0 g/dL LAB HEMETOLOGY METHOD 08/04/2024 10:32 AM [facility] RDW 15.0 11.0 - 15.0 % LAB HEMETOLOGY METHOD 08/04/2024 10:32 AM EST [facility] Platelets 357 130 - 400 K/mcL LAB HEMETOLOGY METHOD 08/04/2024 10:32 AM [facility] MPV 11.2(H) 7.0 - 11.0 FL LAB HEMETOLOGY METHOD 08/04/2024 10:32 AM EST [facility] NRBC 0.0 <1.0 % LAB HEMETOLOGY METHOD 08/04/2024 10:32 AM EST [facility] NRBC Absolute 0.00 <0.10 K/mcL LAB HEMETOLOGY METHOD 08/04/2024 10:32 AM [facility] Blood Venous blood specimen / Unknown Venipuncture / Unknown 08/04/2024 5:05 AM EST 08/04/2024 9:56 AM EST us Clemente Davidson MD LAB BLOOD ORDERABLES Final Resul t [facility] [address] [place] [address], documented in this encounter Visit Diagnoses Diagnosis Osteomyelitis of vertebra, sacral and sacrococcygeal region (CMS/HCC) documented in this encounter Care Teams Solar Project Coordination Specialist Relationship Specialty Start Date End Date Clemente Davidson MD [address] [place] [address], [phone] PCP - General Family Medicine 08/15/24 documented as of this encounter
--- OUTSIDE RECORDS SUMMARY | 2024-11-21 17:48 | XMS_ITS | Encounter Summary ---
Author Organization [facility] Address [address] [place] [address] Care Team Providers Care Job Analysis Manager Name Role Phone Clemente Davidson MD Primary Care Provider [phone] Encounter Details Date Type Department Care Team (Late st Contact Info) Description 09/09/2024 Lab Requisition [facility] - Main Lab [address] [facility] [place] [address] Clemente Davidson MD [address] [facility] [address] [place], [address] Cellulitis, unspecified Social History Tobacco Use [...] Diagnosis Comments CBC WITH AUTO DIFFERENTIAL Routine 09/10/2024 8:06 AM EST Cellulitis, unspecified SEDIMENTATION RATE Routine 09/10/2024 8: 06 AM EST Cellulitis, unspecified CBC AND DIFFERENTIAL Routine 09/10/2024 8:06 AM EST Cellulitis, unspecified C-REACTIVE PROTEIN Routine 09/10/2024 8: 06 AM EST Cellulitis, unspecified COMPREHENSIVE METABOLIC PANEL Routine 09/10/2024 8:06 AM EST Cellulitis, unspecified documented in this encounter Results * (ABNORMAL) CBC auto differential (09/10/2024 8:06 AM EST) [facility] Signature WBC 9.7 4.8 - 10.8 K/mcL LAB HEMETOLOGY METHOD 09/10/2024 12:18 PM [facility] RBC 4.60 4.50 - 5.50 M/mcL LAB HEMETOLOGY METHOD 09/10/2024 12:18 PM [facility] Hemoglobin 12.9(L) 13.5 - 17.5 g/dL LAB HEMETOLOGY METHOD 09/10/2024 12:18 PM [facility] Hematocrit 40.7(L) 42.0 - 54.0 % LAB HEMETOLOGY METHOD 09/10/2024 12:18 PM [facility] MCV 88.1 79.0 - 98.0 FL LAB HEMETOLOGY METHOD 09/10/2024 12:18 PM [facility] MCH 27.9 27.0 - 32.0 pcg LAB HEMETOLOGY METHOD 09/10/2024 12:18 PM [facility] MCHC 31.7(L) 32.0 - 37.0 g/dL LAB HEMETOLOGY METHOD 09/10/2024 12:18 PM [facility] RDW 15.8(H) 11.0 - 15.0 % LAB HEMETOLOGY METHOD 09/10/2024 12:18 PM [facility] Platelets 287 130 - 400 K/mcL LAB HEMETOLOGY METHOD 09/10/2024 12:18 PM [facility] MPV 11.0 7.0 - 11.0 FL LAB HEMETOLOGY METHOD 09/10/2024 12:18 PM [facility] NRBC 0.0 <1.0 % LAB HEMETOLOGY METHOD 09/10/2024 12:18 PM [facility] NRBC Absolute 0.00 <0.10 K/mcL LAB HEMETOLOGY METHOD 09/10/2024 12:18 PM [facility] Neutrophils Relative 40.8 % LAB HEMETOLOGY METHOD 09/10/2024 12:18 PM [facility] Lymphocytes Relative 44.0 % LAB HEMETOLOGY METHOD 09/10/2024 12:18 PM [facility] Monocytes Relative 11.0 % LAB HEMETOLOGY METHOD 09/10/2024 12:18 PM [facility] Eosinophils Relative 3.3 % LAB HEMETOLOGY METHOD 09/10/2024 12:18 PM [facility] Basophils Relative 0.6 % LAB HEMETOLOGY METHOD 09/10/2024 12:18 PM [facility] Immature Granulocytes Relative 0.3 % LAB HEMETOLOGY METHOD 09/10/2024 12:18 PM [facility] Neutrophils Absolute 3.97 1.50 - 7.00 K/mcL LAB HEMETOLOGY METHOD 09/10/2024 12:18 PM [facility] Lymphocytes Absolute 4.29 1.00 - 5.00 K/mcL LAB HEMETOLOGY METHOD 09/10/2024 12:18 PM [facility] Monocytes Absolute 1.07(H) 0.20 - 1.00 K/mcL LAB HEMETOLOGY METHOD 09/10/2024 12:18 PM [facility] Eosinophils Absolute 0.32 0.00 - 0.50 K/mcL LAB HEMETOLOGY METHOD 09/10/2024 12:18 PM [facility] Basophils Absolute 0.06 0.00 - 0.20 K/mcL LAB HEMETOLOGY METHOD 09/10/2024 12:18 PM [facility] Immature Granulocytes Absolute 0.03 0.00 - 0.03 K/mcL LAB HEMETOLOGY METHOD 09/10/2024 12:18 PM EST [facility] Blood Venous blood specimen / Unknown Venipuncture / Unknown 09/10/2024 8:06 AM EST 09/10/2024 11:37 AM EST us Clemente Davidson MD LAB BLOOD ORDERABLES Final Resul t Performing Organization Address [facility]/ZIP Co de Phone Number [facility] [address] [place] [address], [place] [phone] * (ABNORMAL) C-reactive protein (09/10/2024 8:06 AM EST) C-Reactive Protein 0.63(H) <=0.50 mg/dL LAB CHEMISTRY METHOD 09/10/2024 12:40 PM EST [facility] Blood Venous blood specimen / Unknown Venipuncture / Unknown 09/10/2024 8:06 AM EST 09/10/2024 11:37 AM EST us Clemente Davidson MD LAB BLOOD ORDERABLES Final Resul t Performing Organization Address [facility]/ZIP Co de Phone Number [facility] [address] [place] [address], [place] [phone] * (ABNORMAL) Sedimentation rate (09/10/2024 8:06 AM EST) Sed Rate 48(H) 0 - 20 mm/hr LAB HEMETOLOGY METHOD 09/10/2024 12:43 PM EST [facility] Blood Venous blood specimen / Unknown Venipuncture / Unknown 09/10/2024 8:06 AM EST 09/10/2024 11:37 AM EST us Clemente Davidson MD LAB BLOOD ORDERABLES Final Resul t Performing Organization Address City/[facility]/ZIP Co de Phone Number [facility] [address] [place] [address], [place] [phone] * (ABNORMAL) Comprehensive metabolic panel (09/10/2024 8:06 AM EST) Sodium 142 133 - 145 mmol/L LAB CHEMISTRY METHOD 09/10/2024 12:32 PM [facility] Potassium 4.1 3.5 - 5.5 mmol/L LAB CHEMISTRY METHOD 09/10/2024 12:32 PM [facility] Chloride 110 96 - 110 mmol/L LAB CHEMISTRY METHOD 09/10/2024 12:32 PM [facility] CO2 24 21 - 32 mmol/L LAB CHEMISTRY METHOD 09/10/2024 12:32 PM [facility] Anion Gap 8 3 - 11 LAB CHEMISTRY METHOD 09/10/2024 12:32 PM [facility] Glucose 111(H) 70 - 100 mg/dL LAB CHEMISTRY METHOD 09/10/2024 12:32 PM [facility] BUN 13 5 - 25 mg/dL LAB CHEMISTRY METHOD 09/10/2024 12:32 PM [facility] Creatinine 0.90 0.70 - 1.30 mg/dL LAB CHEMISTRY METHOD 09/10/2024 12:32 PM [facility] eGFR 96 >=60 mL/min/1. 73m2 LAB CHEMISTRY METHOD 09/10/2024 12:32 PM [facility] Comment:Calculation based on the??Chronic Kidney Disease Epidemiology Collaboration (CKD-EPI) equation refit??without adjustment for race. BUN/Creatinine Ratio 14.4 LAB CHEMISTRY METHOD 09/10/2024 12:32 PM [facility] Calcium 9.1 8.5 - 10.5 mg/dL LAB CHEMISTRY METHOD 09/10/2024 12:32 PM [facility] AST (SGOT) 15 10 - 42 unit/L LAB CHEMISTRY METHOD 09/10/2024 12:32 PM [facility] ALT (SGPT) 19 10 - 60 unit/L LAB CHEMISTRY METHOD 09/10/2024 12:32 PM EST [facility] Alkaline Phosphatase 87 42 - 121 unit/L LAB CHEMISTRY METHOD 09/10/2024 12:32 PM [facility] Total Protein 6.0 6.0 - 8.0 g/dL LAB CHEMISTRY METHOD 09/10/2024 12:32 PM [facility] Albumin 3.0(L) 3.2 - 5.0 g/dL LAB CHEMISTRY METHOD 09/10/2024 12:32 PM [facility] Total Bilirubin 0.3 0.0 - 1.4 mg/dL LAB CHEMISTRY METHOD 09/10/2024 12:32 PM [facility] Blood Venous blood specimen / Unknown Venipuncture / Unknown 09/10/2024 8:06 AM EST 09/10/2024 11:37 AM EST us Clemente Davidson MD LAB BLOOD ORDERABLES Final Resul t [facility] [address] [place] [address], [place] [phone] documented in this encounter Visit Diagnoses Diagnosis Cellulitis, unspecified documented in this encounter Care Teams Job Analysis Manager Relationship Specialty Start Date End Date Clemente Davidson MD [address] [place] [address], [phone] PCP - General Family Medicine 08/15/24 documented as of this encounter
--- OUTSIDE RECORDS SUMMARY | 2024-11-21 17:48 | XMS_ITS | Data Portability ---
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 elevated LFTs.Monit or CMP q mond. x 4Restart med as able. Alcohol abuse 79826742 F 10.10 No evidence of withdrawal inpt.Refus ed referrals for counseling , AA, rehab.Cont inuefolic acid 1 mg qd, MVI qd, thiamine 100 mg BID, and cyanocobal jules 1000 mcg qd.Continu e to encourage abstinence . Vitamin D deficiency 347 43678 E55.9 Continue ergocalcif xi 50,000 IU weekly x 8 wks then recheck level Liver enzy mes level above reference range 534286834 R74.01 LFTs elevated in hosp.Stati n stoppedMon itor labs, resume atorvastat in as able.Cauti ous use of prn APAP - max 2 gm/d Sepsis 90443004 A41.9 Related to gluteal abscess Abscess of buttock 22789 003 L02.31 Initially presented here with UTS sacral wound, worseningS ent to ER for eval in light of leukocytos is, low BP, concern of sepsis.Glu teal abcess and cellulitis noted on CT.Treated with IV Vanco and Zosyn, then switched to Augmentin 875 mg bid and Bactrim DS bid, both to end 06/06.Plan-C ontinue abx. as aboveCBCD, CMP, ESR, CRP q mond. x 4Monitor s/s infection Orthostati c hypotension 04405584 I95.1 Problemati c today.Kamilla ins on metoprolol ER 50 mg qd for rate control (A fib). May need to consider reducing if HR stable.Enc ourage fluids, goal >2L/dAdd knee high supp hoseContin ue Orthostati c VS dailyMay need to consider midodrine [id number] SONAM NATARAJAN NP [address] [address] 05/29/2024 14:23:36 06/04/2024 11:14:46 Abscess of buttock 77703526 L02.31 Initially presented here with UTS sacral wound, worseningS ent to ER for eval in light of leukocytos is, low BP, concern of sepsis.Glu teal abcess and cellulitis noted on CT.Treated with IV Vanco and Zosyn, then switched to Augmentin 875 mg bid and Bactrim DS bid, both to end 06/06.Plan-C ontinue abx. as aboveCBCD, CMP, ESR, CRP q mond. x 4Monitor s/s infection Sepsis 94577360 A41.9 Related to gluteal abscess, seen above Unstageabl e pressure injury of buttock [id number] 9724695 L89.300 In hosp., pus drained and area debrided 4x at bedside.Co ntinue:Ant ibiotics as above.Woun d care, followed by Wound Practition er here. Debrided 05/27 at bedside, tx. changed to Dakin's gauze in wound bed, zinc barrier cream to periwound bid and prn.Pressu re relief -> needs lo air loss bed, turn on sides as much as possible.N utrition -> extra protien, business analytics intern consulted. Pain mgmt -> ultram prn for pain. Monitor VS qd, labs weekly as above Liver enzy mes level above reference range 355811640 R74.01 LFTs elevated in hosp.Stati n stoppedMon itor labs, resume atorvastat in as able.Cauti ous use of prn APAP - max 2 gm/d Leukocytosis 791147879 D 72.828 WBC still elevated.C ontinue antibiotic s as above for infection. Labs q wk x 4 Orthostati c hypotension 06487426 I95.1 Problemati c today.Kamilla ins on metoprolol ER 50 mg qd for rate control (A fib). May need to consider reducing if HR stable.Enc ourage fluids, goal >2L/dAdd knee high supp hoseContin ue Orthostati c VS daily - discussed with nsg.May need to consider midodrine Asthenia 78298622 R53.1 Very deconditio ramirez due to acute medical problems and prolonged hospital stays.Need s PT/OT for strengthen ing, balance, gait training, safety and function.C ontinue fall precaution s.Monitor for safety.Goa l to return home. Hyperlipidemia 92922001 E78.49 atorvastat in 20 mg qd stopped in hosp. due to elevated LFTs.Monit or CMP q mond. x 4Restart med as able. Atrial fibrillation 4943 6004 I48.0 Thought to be due to intoxicati on/rhabdo and sepsis.Con verted with cardiovers ion in ED.EKG at [facility] =NSRIn good control on metoprolol 50 mg qd (parameter s to hold if SBP<100)Co ntinue Xarelto 20 mg qd for AC, will d/c after 4 wks if still in NSR.Monito r HR and bleeding risk.F/U with cardio. Hypertensive disorder 38 171581 I10 BP running low, significan t symptomati c orthostati c changes persist.Li sinopril stopped, remains on metoprolol with parameters for rate control due tot AF.Monitor Alcohol abuse 75821010 F 10.10 No evidence of withdrawal inpt.Refus ed referrals for counseling , AA, rehab.Cont inuefolic acid 1 mg qd, MVI qd, thiamine 100 mg BID, and cyanocobal jules 1000 mcg qd.Continu e to encourage abstinence . Vitamin D deficiency 347 04078 E55.9 Continue ergocalcif xi 50,000 IU weekly x 8 wks then recheck level [id number] Lynette Alston MD [address] [place] [address] 06/03/2024 16:12:27 06/09/2024 10:29:58 Abscess of buttock 78252701 L02.31 S/P sepsis due to worsening infection. Gluteal abscess and cellulitis debrided at bedside several times.Got Vanco and Zosyn inpt, then switched to Augmentin 875 mg BID and Bactrim DS BID to complete 14 day course, both to end 06/06.Inflam matory markers much improved today.Radha tor CBCD, CMP, ESR, CRP weekly. x 4Monitor s/s infection Sepsis 51130158 A41.89 As above. Unstageabl e pressure injury of buttock 8875119506 4499056 L89.300 As above.Cont inue wound care as ordered.Co ntinue protein supplement and mighty shakes to aid healing.Wo und care following. Liver enzy mes level above reference range 765079824 R74.01 Back to nl range.Cons ider restarting statin.Mon itor. Leukocytosis 576573727 D 72.828 Back to nl.Monitor Orthostati c hypotension 09312252 I95.1 Remains an issue.Is on metoprolol ER 50 mg qd for A fib.Push po fluids.Con tinue compressio n socksMay need to consider midodrine or ddecrease of metoprolol . Asthenia 49601752 R53.1 Very deconditio ramirez due to acute medical problems and prolonged hospital stays.Need s PT/OT for strengthen ing, balance, gait training, safety and function.C ontinue fall precaution s.Monitor for safety.Goa l to return home. Hyperlipidemia 77811978 E78.49 LFTs WNL, consider restarting statin.Mon itor prn. Atrial fibrillation 4943 6004 I48.0 Rate remains in good control on metoprolol 50 mg qd (parameter s to hold if SBP<100)Co ntinue Xarelto 20 mg qd for AC, consider d/c after 4 wks if still in NSR.Monito r HR and bleeding risk.F/U with cardio. Hypertensive disorder 38 231724 I10 BP running low, significan t symptomati c orthostati c changes persist.Bettie sinopril stopped, remains on metoprolol with parameters for rate control due tot AF.Monitor Alcohol abuse 39682919 F 10.10 No evidence of withdrawal inpt.Refus ed referrals for counseling , AA, rehab.Cont inue folic acid 1 mg qd, MVI qd, thiamine 100 mg BID, and cyanocobal jules 1000 mcg qd.Continu e to encourage abstinence . Vitamin D deficiency 347 24943 E56.8 Continue ergocalcif xi 50,000 IU weekly x 8 wks then recheck level [id number] Mag [facility]ipson [facility] [address] 06/06/2024 11:15:30 06/10/2024 09:02:13 Sepsis 83150603 A41.89 As above. Unstageabl e pressure injury of buttock 0320871641 3744038 L89.300 S/P sepsis due to worsening infection. Gluteal abscess and cellulitis debrided at bedside several times in hosp and now followed by wound team here.compl eted Vanco and Zosyn inpt, then switched to Augmentin 875 mg BID and Bactrim DS BID to complete 14 day course, both to end 06/06.Inflam matory markers much improved on onitor CBCD, CMP, ESR, CRP weekly. x 4Monitor s/s infection. Continue wound care as ordered.Co ntinue protein supplement and mighty shakes to aid healing.Wo und care following. air loss bed Liver enzy mes level above reference range 410239673 R74.01 Back to nl range.Cons ider restarting statin.Mon itor. Leukocytosis 648160535 D 72.828 Back to nl.Monitor for s/s of infection Orthostati c hypotension 00238518 I95.1 Remains an issue.06/05 108/69 lying, 74/52 sittingcon tmetoprolo l ER 50 mg qd for rate control (A fib).May need to consider reducing if HR stable.Enc ourage fluids, goal >2L/dknee high supp hoseContin ue Orthostati c VS daily - discussed with nsg.May need to consider midodrine Asthenia 21643442 R53.1 Very deconditio ramirez due to acute medical problems and prolonged hospital stays.Need s PT/OT for strengthen ing, balance, gait training, safety and function.C ontinue fall precaution s.Monitor for safety.Goa l to return home. Hyperlipidemia 12763655 E78.49 atorvastat in 20 mg qd stopped in hosp. due to elevated LFTs.Monit or CMP q mond. x 4Restart med as able. Atrial fibrillation 4943 6004 I48.0 Thought to be due to intoxicati on/rhabdo and sepsis.Con verted with cardiovers ion in ED.EKG at [facility] =NSRIn good control on metoprolol 50 mg qd (parameter s to hold if SBP<100) hr 80sContinu eXarelto 20 mg qd for AC, will d/c after 4 wks if still in NSR.Monito r HR and bleeding risk.F/U with cardio. Hypertensive disorder 38 274890 I10 BP running stablesign ificant symptomati c orthostati c changes persist but now improvingL isinopril stopped in hospremain s on metoprolol with parameters for rate control due tot AF.Monitor Alcohol abuse 71373911 F 10.10 No evidence of withdrawal inpt.Refus ed referrals for counseling , AA, rehab. has had detox in pastContin uefolic acid 1 mg qd, MVI qd, thiamine 100 mg BID, and cyanocobal jules 1000 mcg qd.Continu e to encourage abstinence . Vitamin D deficiency 347 92255 E55.9 Continueer gocalcifer ol 50,000 IU weekly x 8 wks then recheck level Rib pain 777920867 R07.8 1 old rib painseen by pMR9/6 start lidocaine patch left rib daily06/06 increase diclofenac to daily and q 6 hours prntyl prn nte 2 g/daymonit or [id number] SONAM NATARAJAN NP [address] [address] 06/10/2024 08:22:43 06/11/2024 13:50:19 Abscess of buttock 48626386 L02.31 S/P sepsis due to worsening infection. Gluteal abscess and cellulitis debrided at bedside several times.Got Vanco and Zosyn inpt, then switched to Augmentin 875 mg BID and Bactrim DS BID completed 06/06.VSSLab s stable.Mon itor CBCD, CMP, ESR, CRP weekly. x 4Monitor s/s infection Sepsis 61839086 A41.89 As above. Unstageabl e pressure injury of buttock 3382188662 3108511 L89.300 As above.Cont inue wound care as ordered.Co ntinue protein supplement and mighty shakes to aid healing.Wo und care following. Liver enzy mes level above reference range 588628156 R74.01 Back to nl range.Rest art atorvastat in 20 mg qdMonitor CMP/LFTs Leukocytosis 854439057 D 72.828 Remains WNR since completing abx.Monito r Orthostati c hypotension 86158166 I95.1 Unable to find orthostati c BPs in EMR, but pt. reporting he is much less symptomati c and is independen t with ambulation with walker.Con tinues on metoprolol ER 50 mg qd for A fib.PO fluids encouraged , goal >2 L/dContinu e compressio n socks (currently not wearing)Ma y need to consider midodrine or decrease in metoprolol dose. Asthenia 88407976 R53.1 Very deconditio ramirez due to acute medical problems and prolonged hospital stays.Need s PT/OT for strengthen ing, balance, gait training, safety and function.C ontinue fall precaution s.Monitor for safety.Goa l to return home. Hyperlipidemia 00059156 E78.49 LFTs WNLRestart atorvastat in 20 mg qd.Monitor LFTs Atrial fibrillation 4943 6004 I48.0 Rate remains in good control on metoprolol 50 mg qd (parameter s to hold if SBP<100)Co ntinue Xarelto 20 mg qd for AC, consider d/c after 4 wks if still in NSR.Monito r HR and bleeding risk.F/U with cardio. Hypertensive disorder 38 306554 I10 BP improved, no orthostati cs found in EMR to review, will check with nsg.Much less symptomati c lately.Lis inopril stopped, remains on metoprolol with parameters for rate control due tot AF.Monitor Alcohol abuse 61847121 F 10.10 No evidence of withdrawal inpt.Refus ed referrals for counseling , AA, rehab.Cont inue folic acid 1 mg qd, MVI qd, thiamine 100 mg BID, and cyanocobal jules 1000 mcg qd.Continu e to encourage abstinence . Vitamin D deficiency 347 75846 E56.8 Continue ergocalcif xi 50,000 IU weekly x 8 wks then recheck level 9due around the end of Jul. Constipation 78204141 K5 9.00 add senna-s 1 qd, encourage fluid, fiber, activity.M onitor and adjust prn. [id number] Mag Gipson NP [facility] [address] 06/13/2024 11:32:55 06/17/2024 12:47:39 Sepsis 96289606 A41.89 As above.wbc resolving will monitor Unstageabl e pressure injury of buttock 8101168543 8946749 L89.300 S/P sepsis due to worsening infection. unstagable Gluteal abscess and cellulitis debrided at bedside several times.foll owed by woundGoshabana Saba and Zosyn inpt, then switched to Augmentin 875 mg BID and Bactrim DS BID completed 06/06.VSS, however orthos remain positive see belowLabs stable.Mon itor CBCD, CMP, ESR, CRP weekly. x 4Monitor s/s infectionC ontinue wound care as ordered.Co ntinue protein supplement and mighty shakes to aid healing.Wo und care following. Liver enzy mes level above reference range 548296483 R74.01 Back to nl range.ator vastatin 20 mg qd(restart ed last week with improvemen t in lfts)Monit or CMP/LFTs Leukocytosis 422351568 D 72.828 resolvedRe roxanna WNR since completing abx.Monito r Orthostati c hypotension 51315433 I95.1 Unable to find orthostati c BPs in EMR, but pt. reporting he is much less symptomati c and is independen t with ambulation with walker.Con tmetoprolo l ER 50 mg qd for A fib.PO fluids encouraged , goal >2 L/d, unclear if he is drinking enough, fluids givenConti nue compressio n socks (currently not wearing)Ma y need to decrease in metoprolol dose.06/13 will add midodrine 5 mg po bid hold for sbp >120monito r for changes Asthenia 61528287 R53.1 Very deconditio ramirez due to acute medical problems and prolonged hospital stays.Need s PT/OT for strengthen ing, balance, gait training, safety and function.C ontinue fall precaution s.Monitor for safety.Goa l to return home. Hyperlipidemia 77365896 E78.49 LFTs Back to nl range.ator vastatin 20 mg qd(restart ed last week with improvemen t in lfts)Monit or CMP/LFTs Atrial fibrillation 4943 6004 I48.0 Rate remains in good control on metoprolol 50 mg qd (parameter s to hold if SBP<100)Co ntinueXare lto 20 mg qd for AC, consider d/c after 4 wks if still in NSR.Monito r HR and bleeding risk.F/U with cardio. Hypertensive disorder 38 240610 I10 BP improved, orthos done and positive today , see aboveMuch less symptomati c lately.Lis inopril stopped, remains on metoprolol with parameters for rate control due tot AF.Monitor closely Alcohol abuse 79740477 F 10.10 No evidence of withdrawal inpt.Refus ed referrals for counseling , AA, rehab.Cont inuefolic acid 1 mg qd, MVI qd, thiamine 100 mg BID, and cyanocobal jules 1000 mcg qd.Continu e to encourage abstinence . Vitamin D deficiency 347 01346 E56.8 Continueer gocalcifer ol 50,000 IU weekly x 8 wks then recheck level due around the end of Jul. Constipation 61548537 K5 9.00 contsenna- s 1 qd, encourage fluid, fiber, activity.M onitor and adjust prn. [id number] Mag Gipson NP [address] [address] 06/19/2024 08:29:25 06/23/2024 14:40:36 Unstageable pressure injury of buttock 0420119422 6078415 L89.300 S/P sepsis due to worsening infection. unstagable Gluteal abscess and cellulitis debrided at bedside several times.foll owed by woundarleen Saba and Ellen inpt, then switched to Augmentin 875 mg BID and Bactrim DS BID completed 06/06.VSS, however orthos remain positive see belowLabs stable and will monitor closely weekly as incontCBCD , CMP, ESR, CRP weeklyMoni tor s/s infectionC ontinue wound care as ordered.Co ntinue protein supplement and mighty shakes to aid healing.Wo und care following as in hpi Sepsis 84529779 A41.89 As above.wbc resolving will monitor, slight bumpcbc next week Liver enzy mes level above reference range 267659630 R74.01 Back to nl range.ator vastatin 20 mg qd(restart ed last week with improvemen t in lfts)Monit or CMP/LFTs Orthostati c hypotension 45042176 I95.1 Unable to find orthostati c BPs in EMR, but pt. reporting he is much less symptomati c and is independen t with ambulation with walker.Con tmetoprolo l ER 50 mg qd for A fib.PO fluids encouraged , goal >2 L/d, unclear if he is drinking enough, fluids givenConti nue compressio n socks (currently not wearing)Ma y need to decrease in metoprolol dose.06/13 will add midodrine 5 mg po bid hold for sbp >1209/19 awaiting orthostati c bps for titration, nsg awaremonit or for changes Asthenia 64094712 R53.1 Very deconditio ramirez due to acute medical problems and prolonged hospital stays.Need s PT/OT for strengthen ing, balance, gait training, safety and function.C ontinue fall precaution s.Monitor for safety.Goa l to return home. Hyperlipidemia 48464603 E78.49 LFTs Back to nl range.ator vastatin 20 mg qd(restart ed last week with improvemen t in lfts)Monit or CMP/LFTs Atrial fibrillation 4943 6004 I48.0 Rate remains in good control on metoprolol 50 mg qd (parameter s to hold if SBP<100)Co ntinueXare lto 20 mg qd for AC, consider d/c after 4 wks if still in NSR.Monito r HR and bleeding risk.F/U with cardio. Hypertensive disorder 38 475718 I10 BP stableMuch less symptomati c lately.Lis inopril stopped, remains on metoprolol with parameters for rate control due tot AF.Monitor closely Alcohol abuse 23707799 F 10.10 No evidence of withdrawal inpt.Refus ed referrals for counseling , AA, rehab.Cont inuefolic acid 1 mg qd, MVI qd, thiamine 100 mg BID, and cyanocobal jules 1000 mcg qd.Continu e to encourage abstinence . Vitamin D deficiency 347 10833 E56.8 Continueer gocalcifer ol 50,000 IU weekly x 8 wks then recheck level due around the end of Jul. Constipation 87578347 K5 9.00 contsenna- s 1 qd, encourage fluid, fiber, activity.M onitor and adjust prn. [id number] SONAM [facility]AJAN [facility] [address] 06/24/2024 08:57:00 06/25/2024 11:39:00 Sepsis 97426223 A41.89 As above, felt r/t sacral wound infection. Completed abx.Clinic ally much improved.C ontinue to follow VS and weekly labsMonito r for s/s infection. Liver enzy mes level above reference range 775021961 R74.01 Back to nl range.ator vastatin 20 mg qd restarted 06/11 as LFTs improved.M onitor CMP/LFTs Orthostati c hypotension 40193364 I95.1 Orthostati c VS still with sig. drop with standing, however less symptomati c and able to ambulate in the halls with a walker.Cur rently on Metoprolol ER 50 mg qd for A fib rate control. Consider reducing dose if needed.Lis inopril stopped in hosp. Continue:T o encourage fluids, goal >2L/dCompr ession socks daily - encourage useMidodri ne 5 mg bid, change times to 8 am and 2 pm (d/c 8 pm), same parameters to hold for SBP>120 Trend VS, labs, sx. Asthenia 48611479 R53.1 Very deconditio ramirez due to acute medical problems and prolonged hospital stays.Need s PT/OT for strengthen ing, balance, gait training, safety and function.C ontinue fall precaution s.Monitor for safety.Goa l to return home. Hyperlipidemia 51740728 E78.49 LFTs Back to nl range.ator vastatin 20 mg qd(restart ed last week with improvemen t in lfts)Monit or CMP/LFTs Atrial fibrillation 4943 6004 I48.0 Rate remains in good control on metoprolol 50 mg qd (parameter s to hold if SBP<100)Co ntinueXare lto 20 mg qd for AC, consider d/c after 4 wks if still in NSR (mid Jun.). Will order EKG to checkMonit or HR and bleeding risk.F/U with cardio. Hypertensive disorder 38 883055 I10 Orthostati c changes as aboveMeds being adjusted.L ess symptomati c lately.Lis inopril stopped, remains on metoprolol with parameters for rate control due tot AF.Monitor closely Alcohol abuse 76378641 F 10.10 No evidence of withdrawal inpt.Refus ed referrals for counseling , AA, rehab.Cont inuefolic acid 1 mg qd, MVI qd, thiamine 100 mg BID, and cyanocobal jules 1000 mcg qd.Continu e to encourage abstinence . Vitamin D deficiency 347 78092 E56.8 Continueer gocalcifer ol 50,000 IU weekly x 8 wks then recheck level due around the end of Jul. Constipation 74555398 K5 9.00 contsenna- s 1 qd, encourage fluid, fiber, activity.M onitor and adjust prn. Pressure i njury of sacral region of back stage IV 5186979850 5106 L89.154 Developed pressure ulceration prior to initial admission to [facility].Area deteriorat ed while here, sent back to hospital for mgmt. of wound and infection/ sepsis.Sixto asencio in the hospital, wound debrided multiple times, completed IV zosyn and vanco then augmentin and bactrim on 06/06.José medina followed by Wound PA-C, treating with Dakins packing bid.Trendi ng VS, labsEncour aging nutrition, extra proteinRef er to surgery if additional care needed. 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 of wound and infection/ sepsis.Sixto asencio in the hospital, wound debrided multiple times, completed IV zosyn and vanco then augmentin and bactrim on 06/06. Wound team continues treating with Dakins packing bid, dsd, zinc to periwound and debridemen t as needed weeklyTren ding VS, labsoveral l crp trending down and wound improvingE ncouraging nutrition, extra proteinRef er to surgery if additional care needed. Sepsis 08863660 A41.89 resolvedAs above, felt r/t sacral wound infection. Completed abx.Clinic ally much improved.C ontinue to follow VS and weekly labsMonito r for s/s infection. Orthostati c hypotension 20031738 I95.1 Orthostati c VS still with sig. drop with standing, however less symptomati c and able to ambulate in the halls with a walker. Currently on Metoprolol ER 50 mg qd for A fib rate control. Consider reducing dose if needed.Lis inopril stopped in hosp. Continue:T o encourage fluids, goal >2L/dCompr ession socks daily - encourage use, not using06/26 dc Midodrine 5 mg bid, change times to 8 am and 2 pm (d/c 8 pm), same parameters to hold for SBP>1209/2 6 start midodrine 7.5 mg po tidmonitor orthosrend VS, labs, sx. Atrial fibrillation 4943 6004 I48.0 Rate remains in good control on metoprolol 50 mg qd (parameter s to hold if SBP<100)Co ntinueXare lto 20 mg qd for AC, consider d/c after 4 wks if still in NSR (mid Jun.). Will order EKG to checkMonit or HR and bleeding risk.F/U with cardio. Asthenia 61978202 R53.1 Very deconditio ramirez due to acute medical problems and prolonged hospital stays.Need s PT/OT for strengthen ing, balance, gait training, safety and function.C ontinue fall precaution s.Monitor for safety.Goa l to return home. 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 of wound and infection/ sepsis.Sixto asencio in the hospital, wound debrided multiple times, completed IV zosyn and vanco then augmentin and bactrim on 06/06.José fergusony followed by Wound PA-C, treating with Dakins packing bid.Trendi ng VS, labsEncour aging nutrition, extra proteinRef er to surgery if additional care needed.Mon itor. Sepsis [id number] A41.89 As above, felt r/t sacral wound infection. Completed abx.Resolv ed.Continu e to follow VS and weekly labsMonito r Liver enzy mes level above reference range [id number] R74.01 Back to nl range.ator vastatin 20 mg qd restarted 06/11 as LFTs improved.M onitor CMP/LFTs Orthostati c hypotension [id number] I95.1 Orthostati c VS still with drop with standing, however less symptomati c and able to ambulate in the halls with a walker.Cur rently on Metoprolol ER 50 mg qd for A fib rate control. HR 60s-70s - will reduce to 25 mg qd.Encoura ge fluids, goal >2L/dCompr ession socks daily - encourage useMidodri ne increased last week to 7.5 mg tid, (9a, 1p, 5p) holding for SBP>130. Continue.C ontinue to monitor. Atrial fibrillation 4943 6004 I48.0 EKG repeated 06/25, remains in NSR. Will d/c Xarelto 20 mg qd (per hosp. d/c recs.)HR 60s-70s on metoprolol 50 mg qd (parameter s to hold if SBP<100)Du e to orthostati c BPs, reduce dose to 25 mg qd. Monitor HRF/U with cardio prn. Asthenia [id number] R53.1 Very deconditio ramirez due to acute medical problems and prolonged hospital stays.Need s PT/OT for strengthen ing, balance, gait training, safety and function.C ontinue fall precaution s.Monitor for safety.Goa l to return home. Hyperlipidemia 71722468 E78.49 LFTs Back to nl range.ator vastatin 20 mg qd(restart ed last week with improvemen t in lfts)Monit or CMP/LFTs Hypertensive disorder 38 935931 I10 Orthostati c changes as aboveMeds being adjusted.L ess symptomati c lately.Lis inopril stoppedRem ains on metoprolol with parameters for rate control due tot AF. EKG NSR, reducing metoprolol to 25 mg qd, can consider stopping all together if BP problemati c.Monitor closely Alcohol abuse [id number] F 10.10 No evidence of withdrawal inpt.Refus ed referrals for counseling , AA, rehab.Cont inuefolic acid 1 mg qd, MVI qd, thiamine 100 mg BID, and cyanocobal jules 1000 mcg qd.Continu e to encourage abstinence . Vitamin D deficiency 347 22902 E56.8 Continueer gocalcifer ol 50,000 IU weekly x 8 wks then recheck level due around the end of Jul. Constipation [id number] K5 9.00 contsenna- s 1 qd, encourage fluid, fiber, activity.M onitor and adjust prn. 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 of wound and infection/ sepsis.Sixto asencio in the hospital, wound debrided multiple times, completed IV zosyn and vanco then augmentin and bactrim on 06/06. Currently followed by Wound PA-C, now with wound vac this weekEncour aging nutrition, extra protein ordered, and fluidsRefe r to surgery if additional care needed.saqib l order fluids as above07/03 will order doxycyclin e 100 mg po bid x 10 days, and kafoer69/3 increase tramadol 50 mg po q 6hours and prn q 6 hoursMonit or. Sepsis 39872208 A41.89 As above, felt r/t sacral wound infection felt to be resolving, however possible sepsis with wound vac in place and hypotensio n today not improving1 0 will order doxycyclin e 100 mg po bid x 10 days, and reevaland ivf as aboveConti nue to follow VS and weekly labssee orthostati c hypotensio n belowMonit orcbc with diff and bmp reodered esr, crp weekly on sun Liver enzy mes level above reference range [id number] R74.01 Back to nl range.ator vastatin 20 mg qd restarted 06/11 as LFTs improved.M onitor CMP/LFTs Orthostati c hypotension 82142072 I95.1 Orthostati c bps still with drop with standing, and now with sitting Metoprolol ER 50 decreased to 25 mg qd on 07/01 for A fib rate control. HR 60s-70swil l consider another decrease if no improvemen t from fluidsEnco urage fluids, goal >2L/d, however still remains dryCompres mercedez socks daily - encourage use, not very complaint 07/03 Midodrine increased last week to 7.5 mg tid, (9a, 1p, 5p) holding for SBP>130 will increase again to 10 mg po tid1 start ivf ns a 100cc /hr x 2 liters.Con tinue to monitor. Atrial fibrillation 4943 6004 I48.0 EKG repeated 06/25, remains in NSR.-Xarel to 20 mg qd (per hosp. d/c recs.)(if in nsr would stop )HR 60s-70s on metoprolol 25mg qd (parameter s to hold if SBP<100)Du e to orthostati c BPs, dose recently reduced to 25 mg qd on onito r HRF/U with cardio prn. Asthenia [id number] R53.1 Very deconditio ramirez due to acute medical problems and prolonged hospital stays.Need s PT/OT for strengthen ing, balance, gait training, safety and function.C ontinue fall precaution s.Monitor for safety.Goa l to return home. Hyperlipidemia 10867121 E78.49 LFTs Back to nl range.ator vastatin 20 mg qd(restart ed last week with improvemen t in lfts)Monit or CMP/LFTs Hypertensive disorder 38 906665 I10 Orthostati c changes as aboveMeds being adjusted.L isinopril stopped in hospRemain s on metoprolol with parameters for rate control due tot AF. EKG NSR, reduced metoprolol to 25 mg qd on /3co nsider another decrease if no improvemen t with fluidsMoni tor closely Alcohol abuse 95016925 F 10.10 No evidence of withdrawal inpt.Refus ed referrals for counseling , AA, rehab.Cont inuefolic acid 1 mg qd, MVI qd, thiamine 100 mg BID, and cyanocobal jules 1000 mcg qd.Continu e to encourage abstinence . Vitamin D deficiency 347 26405 E56.8 Continueer gocalcifer ol 50,000 IU weekly x 8 wks then recheck level due around the end of Jul. [id number] Mag Gipson NP [address] [address] 07/04/2024 12:18:42 07/07/2024 09:57:03 Orthostatic hypotension 44860752 I95.1 Orthostati c bps positive with dizziness Metoprolol ER 50 decreased to 25 mg qd on 07/01 for A fib rate control. HR 60s-70swil l consider another decrease if no improvemen t from fluidsEnco urage fluids, goal >2L/d, however still remains dry, and not drinking enoughComp ression socks daily - encourage use, not very complaint 07/03 midrodrine 10 mg po tid increased on 07/03 hold sbp >11223/3 start ivf ns a 100cc /hr x 2 liters, finishing second liter07/04 obtain orthostati cs sunday amContinue to monitor. Pressure i njury of sacral region of back stage IV [id number] 5106 L89.154 Developed pressure ulceration prior to initial admission to [facility] [place] deteriorat ed while here, sent back to hospital for mgmt. of wound and infection/ sepsis.Sixto asencio in the hospital, wound debrided multiple times, completed IV zosyn and vanco then augmentin and bactrim on 06/06. followed by Wound PA-C, now with wound vac this weekEncour aging nutrition, extra protein ordered, and fluidsRefe r to surgery if additional care needed.saqib l order fluids as abovecontd oxycycline 100 mg po bid x 10 days, and reeval 07/13trama dol 50 mg po q 6hours and prn q 6 hours recently increasedM onitor.abdoul hty shakeliqui d proteincbc with diff and bmp reodered esr, crp weekly on sun Sepsis 14818202 A41.89 As above, felt r/t sacral wound infection felt to be resolving, however possible sepsis with wound vac in place and hypotensio n contdoxycy shetty 100 mg po bid x 10 days, and reeval 07/13and ivf as aboveConti nue to follow VS and weekly labssee orthostati c hypotensiM onitorcbc with diff and bmp reodered esr, crp weekly on sun Liver enzy mes level above reference range 690426707 R74.01 Back to nl range.ator vastatin 20 mg qd restarted 06/11 as LFTs improved.M onitor CMP/LFTs Atrial fibrillation 4943 6004 I48.0 EKG repeated 06/25, remains in NSR. xarelto stopped per other NPHR 60s-70s on metoprolol 25mg qd (parameter s to hold if SBP<100)Du e to orthostati c BPs, dose recently reduced to 25 mg qd on onito r HRconsider reducing metoprolol again if neededF/U with cardio prn. Asthenia 22081219 R53.1 Very deconditio ramirez due to acute medical problems and prolonged hospital stays.Need s PT/OT for strengthen ing, balance, gait training, safety and function.C ontinue fall precaution s.Monitor for safety.Goa l to return home. Hyperlipidemia 63109777 E78.49 LFTs Back to nl range.ator vastatin 20 mg qd(restart ed last week with improvemen t in lfts)Monit or CMP/LFTs Hypertensive disorder 38 231378 I10 Orthostati c changes as above with low bpsMeds being adjusted.L isinopril stopped in hospRemain s on metoprolol with parameters for rate control due tot AF. EKG NSR, reduced metoprolol to 25 mg qd on onsid er another decrease if no improvemen t with fluids, he is on the second liter todayMonit or closely Alcohol abuse 62669966 F 10.10 No evidence of withdrawal inpt.Refus ed referrals for counseling , AA, rehab.Cont inuefolic acid 1 mg qd, MVI qd, thiamine 100 mg BID, and cyanocobal jules 1000 mcg qd.Continu e to encourage abstinence . Nausea, vo miting and diarrhea 0667640 R11.2 with mild nasal congestion note: roommate with covid recentlypt with n/v/d x 1 day now resolvingi mmodium prn loose stoolsmuci nex dm po bid x 10 dayscovid test negative todayzofra n 4 mg po q 6 hours prnencoura ge po fluids and supportive caremonito r [id number] Mag Gipson NP [address] [address] 07/07/2024 13:27:18 07/08/2024 09:23:52 Orthostatic hypotension 94007957 I95.1 continues with Orthostati c bps positive with dizziness again today 7decrea se Metoprolol ER 25 to 12.5 qd for A fib rate control. HR 60s-70s, bps soft todaywill consider dc if bp doesn't increaseEn courage fluids, goal >2L/d, however still remains dry, and not drinking enoughComp ression socks daily - encourage use, not very complaint 07/03 midrodrine 10 mg po tid increased on 07/03 hold sbp >64925/ 7start ivf LR at 250cc /hr x 500 cc and then 1500 cc at 100cc/hr10 /8 obtain orthostati cs in am10/8 labs bmp, mag, cbc with diff, and crp, esr in amContinue to monitor. Pressure i njury of sacral region of back stage IV [id number] 5106 L89.154 Developed pressure ulceration prior to initial admission to [facility] [place] deteriorat ed while here, sent back to hospital for mgmt. of wound and infection/ sepsis.Whi luis m in the hospital, wound debrided multiple times, completed IV zosyn and vanco then augmentin and bactrim on 06/06. followed by Wound PA-C, now with wound vac this weekEncour aging nutrition, extra protein ordered, and fluidsRefe r to surgery if additional care needed.saqib l order fluids as abovecontd oxycycline 100 mg po bid x 10 days, and reeval 07/13trama dol 50 mg po q 6hours and prn q 6 hours recently increasedM onitor.abdoul hty shakeliqui d proteincbc with diff and bmp reodered esr, crp weekly on sun Sepsis 00028538 A41.89 As above, felt r/t sacral wound infection felt to be resolving, however possible sepsis with wound vac in place and hypotensio n contdoxycy shetty 100 mg po bid x 10 days, and reeval 07/13and ivf as aboveConti nue to follow VS and weekly labssee orthostati c hypotensiM onitorcbc with diff and bmp reodered for sunday and then weekly esr, crp Atrial fibrillation 4943 6004 I48.0 EKG repeated 06/25, remains in NSR. xarelto stopped per other NPHR 60s-70s on metoprolol 25mg qd (parameter s to hold if SBP<100)Du e to orthostati c BPs, dose recently reduced to 25 mg qd on onito r HRconsider reducing metoprolol again if neededF/U with cardio prn. Asthenia [id number] R53.1 Very deconditio ramirez due to acute medical problems and prolonged hospital stays.Need s PT/OT for strengthen ing, balance, gait training, safety and function.C ontinue fall precaution s.Monitor for safety.Goa l to return home. Alcohol abuse 00884139 F 10.10 No evidence of withdrawal inpt.Refus ed referrals for counseling , AA, rehab.Cont inuefolic acid 1 mg qd, MVI qd, thiamine 100 mg BID, and cyanocobal jules 1000 mcg qd.Continu e to encourage abstinence . Acute COVID-19 806585955 8 U07.1 positive covid on 07/05with mild nasal congestion , vomiting and diarrheabe coming dehydrated note: roommate with covid recentlyis olation per facilty [id number] /7 start LR at 250cc/hr x 500 cc, then 100cc/hr x 1500 cc for 2 liters total07/07 check orthostati c bp in am after IVF finished paxlovid dc'd on weekend with swollen tongue per nursing requiring benedrylpt with n/v/d continuesi mmodium prn loose stoolsmuci nex dm po bid x 10 days totalzofra n 4 mg po q 6 hours prnencoura ge po fluids and supportive caremonito r [id number] SONAM NATARAJAN NP [address] [address] 07/08/2024 13:50:55 07/09/2024 13:30:59 Acute COVID-19 6131319638 U07.1 positive covid on 07/05with mild nasal congestion , vomiting and diarrheast arted paxlovid, stopped after 1 dose due to tongue swelling, now resolved. Added med to allergy list.clini antonio improving. completing IVF, leandro. well. Continue to monitor VS, sx.Encoura ge fluidsCont inue supportive careContin ue prn medsMonito r Orthostati c hypotension 24278108 I95.1 Continues with symptomati c orthostati c hypotensio n.Completi ng IVF todayRepea t labs stable.D/C metoprolol Continue midodrine 10 mg tid, holding for SBP>130. Change times to 6am, 11 am, 4 pm.Continu e to monitor orthostati cs - wait 3-5 mins. between readings.E ncourage po fluidsEnco urage use of supp. hose.Felton nue to monitor VS, sx. Pressure i njury of sacral region of back stage IV 1294245412 5106 L89.154 Developed pressure ulceration prior to initial admission to [facility] [place] deteriorat ed while here, sent back to hospital for mgmt. of wound and infection/ sepsis.Sixto asencio in the hospital, wound debrided multiple times, completed IV zosyn and vanco then augmentin and bactrim on 06/06. Followed by in house Wound PA-C, treatment changed to wound vac, replaced today.Curr ently on doxy x 10 days, ? concern of wound infection/ cellulitis ?Ultram prn added for pain mgmt.Felton nue to monitor wound, VS and labsEncour age po hydration and nutrition supplement s Atrial fibrillation 4943 6004 I48.0 EKG repeated 06/25, remains in NSR. xarelto stopped per other NPMetoprol ol dose reduced due to orthostati c hypotensio n. HR remains stable and no longer in A fib, will stop metoprolol completely .Continue to monitor HR/VSF/U with cardio prn. Asthenia 39833869 R53.1 Very deconditio ramirez due to acute medical problems and prolonged hospital stays.Need s PT/OT for strengthen ing, balance, gait training, safety and function.E ncourage OOB as much as leandro.Contin ue fall precaution s.Monitor for safety.Goa l to return home. Alcohol abuse 62359937 F 10.10 No evidence of withdrawal inpt.Refus ed referrals for counseling , AA, rehab.Cont inuefolic acid 1 mg qd, MVI qd, thiamine 100 mg BID, and cyanocobal jules 1000 mcg qd.Continu e to encourage abstinence . [id number] Mag Gipson, SAL[place] [address] [address] 07/09/2024 12:00:10 07/10/2024 10:42:55 Acute COVID-19 9808023743 U07.1 positive covid on 07/05with mild nasal congestion , vomiting and diarrheast arted paxlovid, stopped after 1 dose due to tongue swelling, now resolved.c linically improving overall but remains orthostati c.complete d IVF, leandro. well. 07/09 now with cough and increased wbc count and orthostasi swill start on ceftriaxon e 1gram iv/im q 24 hours x 3 days(note: this is how he presented with sepsis the last time)will rule out cxr today ro pna with increased wbc countrepea t cbc with diff, and bmp on 07/11 Orthos still positive see below 07/09 Continue to monitor VS, sx.Encoura ge fluidsCont inue supportive careContin ue prn medsMonito r Orthostati c hypotension 84730925 I95.1 Continues with symptomati c orthostati c hypotensio n.complete d 4 liters in the last week,metop rolol recently dc'dContin uemidodrin e 10 mg tid, holding for SBP>130. Change times to 6am, 11 am, 4 pm.Continu e to monitor orthostati cs - wait 3-5 mins. between readings. 07/09 still positive orthos, start 2 liters ns at 100cc/hrre peat orthos on 07/10 amEncourag e po fluidsEnco urage use of supp. hose.Felton nue to monitor VS, sx. Pressure i njury of sacral region of back stage IV [id number] 5106 L89.154 Developed pressure ulceration prior to initial admission to [facility] [place]Area deteriorat ed while here, sent back to hospital for mgmt. of wound and infection/ sepsis.Jodii luis m in the hospital, wound debrided multiple times, completed IV zosyn and vanco then augmentin and bactrim on 06/06. Followed by in house Wound PA-C, treatment changed to wound vac, replaced on urren tly on doxy x 10 days, ? concern of wound and increased wbc with orthostasi s infection/ cellulitis ?Ultram prn added for pain mgmt.Felton nue to monitor wound, VS and labsEncour age po hydration and nutrition supplement s Atrial fibrillation 4943 6004 I48.0 EKG repeated 06/25, remains in NSR. xarelto stopped per hosp ordersMeto prolol dc'd for hypotensio n(consider if can be added back in)Continu e to monitor HR/VSF/U with cardio prn. Asthenia 37350810 R53.1 Very deconditio ramirez due to acute medical problems and prolonged hospital stays.Need s PT/OT for strengthen ing, balance, gait training, safety and function.E ncourage OOB as much as leandro.Contin ue fall precaution s.Monitor for safety.Goa l to return home. [id number] Mag Gipson NP [address] [address] 07/10/2024 14:47:02 07/14/2024 08:22:41 Acute COVID-19 3632997487 U07.1 positive covid on 07/05with mild nasal congestion , vomiting and diarrhea now resolving1 started paxlovid, stopped after 1 dose due to tongue swelling, now resolved. clinically improving overall but remains orthostati c.finishin g IVF (total of 6 liters), leandro. well. ceftriaxon e 1gram iv/im q 24 hours x 3 days total started on07/09(not e: this is how he presented with sepsis the last time and now with elevated crp cxr 07/10 neg for pna and no acute diseaserep eat cbc with diff, and bmp on 07/11 Orthos still positive see below 07/09 Continue to monitor VS, sx.Encoura ge fluidsCont inue supportive careContin ue prn medsMonito r Orthostati c hypotension 87755340 I95.1 Continues with symptomati c orthostati c hypotensio n.complete d 4 liters in the last week,metop rolol recently dc'dContin uemidodrin e 10 mg tid, holding for SBP>130. Change times to 6am, 11 am, 4 pm.Continu e to monitor orthostati cs - wait 3-5 mins. between readings. positive orthos, start 2 liters ns at 100cc/hr on equest repeat orthos after IVF complete today or in amrequest cardiology visit for ortho positive, dizziness, and inability to tolerate metoprolol for afib Encourage po fluidsEnco urage use of supp. hose.Felton nue to monitor VS, sx. Pressure i njury of sacral region of back stage IV 7555847871 5106 L89.154 Developed pressure ulceration prior to initial admission to [facility] [place]Area deteriorat ed while here, sent back to hospital for mgmt. of wound and infection/ sepsis.Sixto asencio in the hospital, wound debrided multiple times, completed IV zosyn and vanco then augmentin and bactrim on 06/06. Followed by in house Wound PA-C, treatment changed to wound vac, replaced on urren tly on doxy x 10 days, ? concern of wound and increased wbc with orthostasi s infection/ cellulitis ?added ceftriaxon e 1 gram daily x 3 doses for likely infection on 07/09Ultram prn added for pain mgmt.Felton nue to monitor wound, VS and labsEncour age po hydration and nutrition supplement s Atrial fibrillation 4943 6004 I48.0 EKG repeated 06/25, remains in NSR. xarelto stopped per hosp ordersMeto prolol dc'd for hypotensio n(consider if can be added back in)Continu e to monitor HR/VS07/10 F/U with cardio for othostasis , afib unable to leandro metoprolol Asthenia 09092403 R53.1 Very deconditio ramirez due to acute medical problems and prolonged hospital stays.Need s PT/OT for strengthen ing, balance, gait training, safety and function.E ncourage OOB as much as leandro.Contin ue fall precaution s.Monitor for safety.Goa l to return home. [id number] [facility] [address] 07/11/2024 13:02:48 07/16/2024 09:13:38 Orthostatic hypotension 84933613 I95.1 Continues with symptomati c orthostati c hypotensio n slow inmproveme ntcomplete d 6 liters in the last weekmetopr olol recently dc'd1 start 2 liters NS @100cc/hrC ontinuemid odrine 10 mg tid, holding for SBP>130 at 6am, 11 am, 4 pm.orthost atics - wait 3-5 mins. between readings.c ardiology visit for ortho positive, dizziness, and inability to tolerate metoprolol for afib Encourage po fluids, seems he doesn't drink much and educated on need on several occassions Encourage use of supp. hose.Felton nue to monitor VS, sx.conside r sending to ER if continues with dizziness and orthostasi s without improvemen trepeat labs on 07/15 Acute COVID-19 030001721 8 U07.1 positive covid on 07/05with mild nasal congestion , vomiting and diarrhea now resolving1 0 started paxlovid, stopped after 1 dose due to tongue swelling, now resolved. clinically improving overall but remains orthostati c.finishin g IVF (total of 6 liters), leandro. well. ceftriaxon e 1gram iv/im q 24 hours x 3 days total started on07/09(not e: this is how he presented with sepsis the last time and now with elevated crp cxr 07/10 neg for pna and no acute diseaserep eat cbc with diff, and bmp on 07/11 Orthos still positive see below 07/09 Continue to monitor VS, sx.Encoura ge fluidsCont inue supportive careContin ue prn medsMonito r Pressure i njury of sacral region of back stage IV [id number] 5106 L89.154 Developed pressure ulceration prior to initial admission to [facility] [place]Area deteriorat ed while here, sent back to hospital for mgmt. of wound and infection/ sepsis.Whi luis m in the hospital, wound debrided multiple times, completed IV zosyn and vanco then augmentin and bactrim on 06/06. Followed by in house Wound PA-C, treatment changed to wound vac, replaced on urren tly on doxy x 10 days, for concern of wound and increased wbc with orthostasi s infection and increased crpceftria xone 1 gram daily x 3 doses for likely infection, has one more dose to finishUltr am prn pain mgmt.Felton nue to monitor wound, VS and labsEncour age po hydration and nutrition supplement s Atrial fibrillation 4943 6004 I48.0 EKG repeated 06/25, remains in NSR. xarelto stopped per hosp ordersMeto prolol dc'd for hypotensio n(consider if can be added back in)Continu e to monitor HR/VSF/U with cardio for othostasis and dizziness, afib unable to leandro metoprolol Asthenia [id number] R53.1 Very deconditio ramirez due to acute medical problems and prolonged hospital stays.Need s PT/OT for strengthen ing, balance, gait training, safety and function.E ncourage OOB as much as leandro.Contin ue fall precaution s.Monitor for safety.Goa l to return home. [id number] Lynette Alston MD [address] [address] 07/14/2024 19:46:28 07/16/2024 12:09:31 Leukocytosis 759224260 D72.828 More elevated, but clinically looks great.Labs already ordered for 07/16.Will repeat then or sooner if any increased sxs. [id number] Mag [facility] [address] 07/17/2024 12:21:01 07/21/2024 09:18:25 Orthostatic hypotension 00162202 I95.1 Continues with symptomati c orthostati c hypotensio n slow improvemen tcompleted 8 liters in the last week remains dizzy with ortho positive today, unable to get standing bp or walk for rehab here metoprolol recently dc'd (could not tolerate)o n midodrine 10 mg tid, holding for SBP>130 at 6am, 11 am, 4 pm.cardiol ogy visit for ortho positive, dizziness, and inability to tolerate however no appt booked yet, send to ER for evaluation / ? POTS syndrome, or arrythmia Unstageabl e pressure injury of buttock [id number] 8382864 L89.300 S/P sepsis due to worsening infection. unstagable (? stage IV)Gluteal abscess and cellulitis debrided at bedside several times.foll owed by woundin past received Vanco and Zosyn inpt, then switched to Augmentin 875 mg BID and Bactrim DS BID completed 06/06. recent ortho positive, increased wbc, and malodor to wound send to ER for eval and concern of sepsis [id number] SONAM NATARAJAN NP [address] [address] 07/26/2024 12:43:20 07/29/2024 09:47:18 Orthostatic hypotension 11554395 I95.1 Ongoing problem.Gi waldo IVF in hosp., supp hose and abd. binder added when OOB.Contin ues on midodrine 10 mg tid.Mainta in fluids, push po, IVF prnCMP q sunday and prnPT OT eval and tx.Orthost atic VS dailyMonit or Unstageabl e pressure injury of buttock [id number] L89.300 Continues with local tx.Seen by Surgery in hosp., no surgical interventi on required this time.Seen by Wound team, and current tx. is Vashe soaked gauze x 10 minutes, the aquacel AG in wound bed, cover with foam dressing qod and prn.Refer back to wound team here to follow. tician consult to optimize nutrition. Now on pip/tazo for acute osteo of sacral area, see below. 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 375 gm IV q 8 hrs x 6 wks. Started 07/17.PICC line placed 07/22.CBC, CMP, ESR, CRP q sunday, results to IDNeeds follow up with ID as well, update with concernsVS dailyMonit or integrity of wound.Add probiotic bid x 8 wks. Loose stool [id number] R1 9.5 questionab le in hosp.addin g probiotic bid x 8 wks.monito r Atrial fibrillation 4943 6004 I48.0 Upon return from hosp., back on metoprolol ER 50 mg qd and rivaroxaba n 20 mg qd. These meds were stopped here a few weeks ago due to symptomati c orthostati c hypotensio n, HR WNR, and repeat EKG 06/25, showing pt. in NSR. EKG at [facility] 07/17 shows pt. remaining in NSR. Plan -continue meds for now, watch VS, adjust BB as needed.con catia designer repeat EKG, if still NSR can consider stopping AC again. Continue to monitor HR/VSF/U with cardio prn. [id number] Mag Gipson NP [address] [address] 07/30/2024 11:02:21 07/31/2024 09:50:58 Orthostatic hypotension 32513472 I95.1 Ongoing problem.Gi waldo IVF in hosp., supp hose and abd. binder added when OOB.Contin ues on midodrine 10 mg tid.Mainta in fluids, push po, IVF prnCMP q sunday and prnPT OT eval and tx.Orthost atic VS dailyMonit or Unstageabl e pressure injury of buttock [id number] 2031124 L89.300 with osteomyeli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
--- OUTSIDE RECORDS SUMMARY | 2024-11-21 17:48 | XMS_ITS | Data Portability ---
Author Organization MD - [facility], [facility] Address [address] [place] [address] Assessment No assessment recorded. Plan of Treatment [...] 215 aron knee 4v cw 2024 025 [email or web address] [facility], [address], [address], [place], [address], 11/14/2024 11:27:11 MRI, knee, w/o contrast - left kneeL>R 2024 025 [id number] [facility] ([facility]), [address], [place], [address], 11/14/2024 11:27:11 MRI, knee, w/o contrast - right knee L>R 2024 025 [email or web address] [facility] ([facility]), [address], [place], [address], 11/14/2024 11:27:11 Medication Orders None recorded. Patient TargetsNo targets recorded. Patient InstructionsNo instructions recorded. Reason for Referral None Reported. Results Created Date Observation Date Name Description Value Unit Range Abnormal Flag Note LastModifiedBy Organization Detail LastModifiedTime 05/30/20 24 10/21/2023 imagi ng/di agnos tic resul t No observ ation record ed. [email or web address] Not Available 05/03 19:51:40 11/06/19 25 11/06/2024 XR, knee, 4 or more view [email or web address] ?Encry pted=s hAaTro YD8dLq bEUv6g %2BXZw aYqtaq 0bqfl% 2Fg9IQ a4ajBk vP9nXo QUaueC m3YtLR FvZlgJ JJ8mAn HZtai3 1u4257 AC0Kqb HiHVaG nKiQtr MwF INTERFACE [facility] [address], [place], [address], 11/06/2024 11:36:14 11/06/19 25 11/06/2024 XR, knee, 4 or more view [email or web address] ?Encry pted=s hAaTro YD8dLq bEUv6g %2BXZw aYqtaq 0bqfl% 2Fg9IQ a4ajBk vP9nXo QUaueC m3YtLR FvZlgJ JJ8mAn HZtai3 1h6263 AC0Kqb HiHVaG nKiQtr MwF INTERFACE [facility] [address], [place], [address], 11/06/2024 11:36:16 Result Notes None recorded. Problems Name Problem SNOMED Code Status Onset Date Resolution Date Notes Provider Name and Address Organization Details Recorded Time No complaints 755901847 Active Status : 'A'; Not Available [facility] 4 09:13:01 Pain of knee region 4785105309 Active 2024 lamonte moya [place] - [facility] 5 11:22:30 Bilateral hip joint pain 8409818248393 9100 Active 2023 lamonte moya [place] - [facility] 4 11:46:26 Problem Notes None recorded. Procedures Surgical History Date Name Laterality Status Provider Name and Address Organization Details Recorded Time 4 Hip Kenalog 1cc Injection, Bilateral completed Tierra Wolak, PA-C [address], [place], [address], [facility] - [facility] 01/31/2024 21:20:13 Hip Kenalog 1cc Injection, Bilateral completed Tierra Brady PA-C [address], [place], [address], [facility] - [facility] 12/13/2023 15:45:43 Imaging Results Imaging Date Name Status LastModified by Organiz ation Details LastModified Time 10/21/2023 imaging/diag nostic result completed [email or web address] Information not available 05/30/2024 19:51:40 11/06/2024 XR, knee, 4 or more view completed INTER[facility] [address], [place], [address], 11/06/2024 11:36:14 11/06/2024 XR, knee, 4 or more view completed [facility]FACE [facility] [address], [place], [address], 11/06/2024 11:36:16 Procedure Notes None recorded. Medical Equipment None [...] and Address Organization Details Last Updated DateTime 01/31/2024 182.88 cm 24.7 kg/m2 82255.81 g Tierra Brady PA-C [address] [facility] [address], [place], [address], [place] - [facility] 01/31/2024 14:58:06 Date Recorded Body height Body mass index (BMI) Body weight Provider Name and Address Organization Details Last Updated DateTime 11/06/2024 182.88 cm 24.7 kg/m2 13671.81 g lamonte cortez MD - [facility] 11/06/2024 11:19:31 Social History None recorded. Functional Status None recorded. Mental Status None recorded. Family History Nothing Reported. Medical History No medical history recorded. Past Encounters Encounter ID Performer Location Encounter Start Date Encounter Closed Date Diagnosis/Indication Diagnosis SNOMED-CT Code Diagnosis ICD10 Code Diagnosis Note [id number] [facility] [address] [place] [place] [address] 12/13/2023 14:41:28 12/13/2023 16:27:26 Trochanteric bursitis of right hip 5491843384 32144 M70.61 Trochanter ic bursitis of left hip 9643578149 31526 M70.62 Osteoarthr itis of bilateral hip joints 7592537519 27094 M16.0 [id number] Tierra Brady PA-C [place] [address] [place] [address] 01/31/2024 14:42:17 02/21/2024 17:52:51 Trochanteric bursitis of right hip 0512215822 23325 M70.61 Trochanter ic bursitis of left hip 4397552358 44028 M70.62 Osteoarthr itis of bilateral hip joints 0138655257 85813 M16.0 [id number] Tierra Brady PA-C [facility] [address] [place] [address] 11/06/2024 10:48:11 11/14/2024 11:27:11 Pain of knee region 7606160441 M25.561 M25.562 Primary go narthrosis, bilateral 436981782 M17.0 Health Concerns Section Related Observation LastModified by Organization Detai ls LastModified Time None Recorded Concern Status LastModified by Organization Details LastModified Time None Recorded Advance Directives Directive None Recorded Payers Encounter Date Sequence Insurance Name Policy Number Policy Saavedra Covered Member ID Saavedra Member ID Guarantor Name 12/13/2023 1 [employer] - CHOICE (POS II) [id number] Emeka Ballesteros [id number] Emeka Ballesteros 01/31/2024 1 [employer] - CHOICE (POS II) [id number] Emeka Ballesteros [id number] Emeka Ballesteros 11/06/2024 2 MEDICAID-MD: [facility] Eemka Ballesteros [id number] Emeka Ballesteros 11/06/2024 1 [employer] - CHOICE (POS II) [id number] Emeka Ballesteros [id number] Emeka Ballesteros Notes Date Note Type Note Provider Name and Address Organization Details Recorded Time 12/13/2023 text/html *I am seeing the patient today under the supervision of Dr. Downing who was available but who did not see the patient.HPI: Emeka presents to the office today for a recheck of his chronic bilateral hip pain. He has been suffering from hip pain for approximately 2 years. He describes his pain as being along the lateral aspect of the hips which at times radiates into the gluteal musculature and down the IT band. Symptoms are most significant was sleeping at night, prolonged sitting, and getting up from a seated position. He participated in therapy for his hips which she did not find to be beneficial. He was seen by myself in October at which time bilateral hip trochanteric bursa were injected with cortisone and Meloxicam was prescribed. He found both of these to be extremely helpful. He fell close to 100% for 5 weeks, but after working a 12 hour shift his hip pain has started to return.PMH/PSH/MEDS/A LL/FMH/SOC HX/ROS are reviewed in detail per my medical intake sheet.General Exam: Vital signs are as noted belowMental status: Alert and lucid. Normal insight, affect and grooming.DENTAL RECEPTIONIST: Gross motor coordination is intact. No spasticity or clonus noted.EXAMINATION: The patient is well appearing and in no apparent distress. Alert and oriented x3. Gait is antalgic.Bilateral hips reveal no obvious deformity upon inspection. No edema, erythema, ecchymosis, or lesions. Neurovascularly intact. Tenderness is present over the greater trochanter. ROM is slightly restricted at end range of rotation. Impingement sign is mildly positive. Negative Luca's, Stinchfield test, and straight leg raise. No instability. 5/5 strength. Calf/leg compartments soft and compressible.X-rays ordered, obtained and reviewed at [facility] previously include an AP pelvis and lateral view of bilateral hips. Images reveal mild osteoarthritis. No evidence for an acute fracture or lesion.IMPRESSION: Bilateral hip greater trochanteric bursitis and osteoarthritisPLAN:Th e patient was thoroughly counseled today regarding their hip condition, its natural history, and the treatment options including physical therapy, medication, and a corticosteroid injection. The patient is interested in receiving an injection with corticosteroid.Bilate ral trochanteric regions were prepped sterilely, and injections were administered at the point of maximum tenderness utilizing 40mg of Kenalog and 5cc of 0.25% Marcaine. The patient tolerated the procedure well. Post-injection precautions were discussed. He Responded extremely favorably to his first injection which confirms that the majority of his pain is coming from his bursitis. We will tentatively save him an appointment in 3 months for a repeat injection. A work note has been provided. All of his questions have been answered.[employer] [place] speech recognition celebrity manager software was used to create portions of this document. An attempt at proofreading has been made to minimize errors. Please call for corrections. Tierra Brady PA-C [address] [place] [address] [address], [place], [address], [facility] - [facility] 12/13/2023 16:26:46 01/31/2024 text/html *I am seeing the patient today under the supervision of Dr. Downing who was available but who did not see the patient.HPI: Emeka presents to the office today for a recheck of his chronic bilateral hip pain. He has been suffering from hip pain for approximately 2 years. He describes his pain as being along the lateral aspect of the hips which at times radiates into the gluteal musculature and down the IT band. Symptoms are most significant was sleeping at night, prolonged sitting, and getting up from a seated position. He participated in therapy for his hips which he did not find to be beneficial. He was seen by myself in October at which time bilateral hip trochanteric bursa were injected with cortisone and Meloxicam was prescribed. He found both of these to be extremely helpful. He fell close to 100% for 5 weeks, but after working a 12 hour shift his hip pain has started to return. He then received another injection in November which only improved his pain somewhat.PMH/PSH/MEDS /ALL/FMH/SOC HX/ROS are reviewed in detail per my medical intake sheet.General Exam: Vital signs are as noted belowMental status: Alert and lucid. Normal insight, affect and grooming.DENTAL RECEPTIONIST: Gross motor coordination is intact. No spasticity or clonus noted.EXAMINATION: The patient is well appearing and in no apparent distress. Alert and oriented x3. Gait is antalgic.Bilateral hips reveal no obvious deformity upon inspection. No edema, erythema, ecchymosis, or lesions. Neurovascularly intact. Tenderness is present over the greater trochanter. ROM is slightly restricted at end range of rotation. Impingement sign is mildly positive. Negative Luca's, Stinchfield test, and straight leg raise. No instability. 5/5 strength. Calf/leg compartments soft and compressible.X-rays ordered, obtained and reviewed at [facility] previously include an AP pelvis and lateral view of bilateral hips. Images reveal mild to moderate osteoarthritis. No evidence for an acute fracture or lesion.IMPRESSION: Bilateral hip greater trochanteric bursitis and osteoarthritisPLAN:Th e patient was thoroughly counseled today regarding their hip condition, its natural history, and the treatment options including physical therapy, medication, and a corticosteroid injection. The patient is interested in receiving an injection with corticosteroid.Bilate ral trochanteric regions were prepped sterilely, and injections were administered at the point of maximum tenderness utilizing 40mg of Kenalog and 5cc of 0.25% Marcaine. The patient tolerated the procedure well. Post-injection precautions were discussed. He Responded extremely favorably to his first injection, but his most recent injection provided him with less relief. I explained to him that some of his hip pain could be stemming from his osteoarthritis. We will tentatively schedule him an appointment for bilateral hip intra-articular cortisone injections in the event that symptoms do not improve following the bursa injections today. All of his questions have been answered.[employer] [place] speech recognition celebrity manager software was used to create portions of this document. An attempt at proofreading has been made to minimize errors. Please call for corrections. Tierra Brady PA-C [address] [facility] [address], [place], [address], [facility] - [facility] 01/31/2024 21:21:26 11/06/2024 text/html I am seeing the patient [...] and lucid. Normal insight, affect and grooming. DENTAL RECEPTIONIST: Gross motor coordination is intact. No spasticity [...] strength. X-rays ordered, obtained and reviewed at [facility] today include {{4 views of bilateral knees.*}} [...] All questions answered. Tierra Brady PA-C [address] [facility] [address], [place], [address], [facility] - [facility] 11/08/2024 14:59:03
--- OUTSIDE RECORDS SUMMARY | 2024-11-21 17:48 | XMS_ITS | Encounter Summary ---
Author Organization [facility] Address [address] [place] [address] Care Team Providers Care Loan Consultant Name Role Phone Clemente Davidson MD Primary Care Provider [phone] Encounter Details Date Type Department Care Team (Late st Contact Info) Description 09/02/2024 Lab Requisition [facility] - Main Lab [address] [facility] [address] Clemente Davidson MD [address] [facility] [address] [place], [address] Cellulitis, unspecified Social History Tobacco Use [...] Diagnosis Comments CBC WITH AUTO DIFFERENTIAL Routine 09/03/2024 6:06 AM EST Cellulitis, unspecified SEDIMENTATION RATE Routine 09/03/2024 6: 06 AM EST Cellulitis, unspecified CBC AND DIFFERENTIAL Routine 09/03/2024 6:06 AM EST Cellulitis, unspecified C-REACTIVE PROTEIN Routine 09/03/2024 6: 06 AM EST Cellulitis, unspecified COMPREHENSIVE METABOLIC PANEL Routine 09/03/2024 6:06 AM EST Cellulitis, unspecified documented in this encounter Results * (ABNORMAL) CBC auto differential (09/03/2024 6:06 AM EST) WBC 10.2 4.8 - 10.8 K/mcL LAB HEMETOLOGY METHOD 09/03/2024 11:53 AM [facility] RBC 4.80 4.50 - 5.50 M/mcL LAB HEMETOLOGY METHOD 09/03/2024 11:53 AM [facility] Hemoglobin 13.7 13.5 - 17.5 g/dL LAB HEMETOLOGY METHOD 09/03/2024 11:53 AM [facility] Hematocrit 43.6 42.0 - 54.0 % LAB HEMETOLOGY METHOD 09/03/2024 11:53 AM [facility] MCV 90.1 79.0 - 98.0 FL LAB HEMETOLOGY METHOD 09/03/2024 11:53 AM [facility] MCH 28.3 27.0 - 32.0 pcg LAB HEMETOLOGY METHOD 09/03/2024 11:53 AM [facility] MCHC 31.4(L) 32.0 - 37.0 g/dL LAB HEMETOLOGY METHOD 09/03/2024 11:53 AM [facility] RDW 15.9(H) 11.0 - 15.0 % LAB HEMETOLOGY METHOD 09/03/2024 11:53 AM [facility] Platelets 342 130 - 400 K/mcL LAB HEMETOLOGY METHOD 09/03/2024 11:53 AM [facility] MPV 11.2(H) 7.0 - 11.0 FL LAB HEMETOLOGY METHOD 09/03/2024 11:53 AM [facility] NRBC 0.0 <1.0 % LAB HEMETOLOGY METHOD 09/03/2024 11:53 AM [facility] NRBC Absolute 0.00 <0.10 K/mcL LAB HEMETOLOGY METHOD 09/03/2024 11:53 AM [facility] Neutrophils Relative 42.1 % LAB HEMETOLOGY METHOD 09/03/2024 11:53 AM [facility] Lymphocytes Relative 41.6 % LAB HEMETOLOGY METHOD 09/03/2024 11:53 AM [facility] Monocytes Relative 11.9 % LAB HEMETOLOGY METHOD 09/03/2024 11:53 AM [facility] Eosinophils Relative 3.1 % LAB HEMETOLOGY METHOD 09/03/2024 11:53 AM [facility] Basophils Relative 0.8 % LAB HEMETOLOGY METHOD 09/03/2024 11:53 AM [facility] Immature Granulocytes Relative 0.5 % LAB HEMETOLOGY METHOD 09/03/2024 11:53 AM [facility] Neutrophils Absolute 4.30 1.50 - 7.00 K/mcL LAB HEMETOLOGY METHOD 09/03/2024 11:53 AM [facility] Lymphocytes Absolute 4.24 1.00 - 5.00 K/mcL LAB HEMETOLOGY METHOD 09/03/2024 11:53 AM [facility] Monocytes Absolute 1.21(H) 0.20 - 1.00 K/mcL LAB HEMETOLOGY METHOD 09/03/2024 11:53 AM [facility] Eosinophils Absolute 0.32 0.00 - 0.50 K/mcL LAB HEMETOLOGY METHOD 09/03/2024 11:53 AM [facility] Basophils Absolute 0.08 0.00 - 0.20 K/mcL LAB HEMETOLOGY METHOD 09/03/2024 11:53 AM [facility] Immature Granulocytes Absolute 0.05(H) 0.00 - 0.03 K/mcL LAB HEMETOLOGY METHOD 09/03/2024 11:53 AM EST [facility] Blood Venous blood specimen / Unknown Venipuncture / Unknown 09/03/2024 6:06 AM EST 09/03/2024 10:23 AM EST us Clemente Davidson MD LAB BLOOD ORDERABLES Final Resul t Performing Organization Address [facility]/ZIP Co de Phone Number [facility] [address] [place] [address], [place] [phone] * C-reactive protein (09/03/2024 6:06 AM EST) Pathologist [facility] C-Reactive Protein 0.50 <=0.50 mg/dL LAB CHEMISTRY METHOD 09/03/2024 12:08 PM EST [facility] Blood Venous blood specimen / Unknown Venipuncture / Unknown 09/03/2024 6:06 AM EST 09/03/2024 10:23 AM EST us Clemente Davidson MD LAB BLOOD ORDERABLES Final Resul t Performing Organization Address [facility] Co de Phone Number [facility] [address] [place] [address], [place] [phone] * (ABNORMAL) Sedimentation rate (09/03/2024 6:06 AM EST) Pathologist [facility] Sed Rate 30(H) 0 - 20 mm/hr LAB HEMETOLOGY METHOD 09/03/2024 11:30 AM EST [facility] Blood Venous blood specimen / Unknown Venipuncture / Unknown 09/03/2024 6:06 AM EST 09/03/2024 10:23 AM EST us Clemente Davidson MD LAB BLOOD ORDERABLES Final Resul t Performing Organization Address City/[facility]/ZIP Co de Phone Number [facility] [address] [place] [address], [place] [phone] * (ABNORMAL) Comprehensive metabolic panel (09/03/2024 6:06 AM EST) [facility] Signature Sodium 140 133 - 145 mmol/L LAB CHEMISTRY METHOD 09/03/2024 12:11 PM [facility] Potassium 5.0 3.5 - 5.5 mmol/L LAB CHEMISTRY METHOD 09/03/2024 12:11 PM [facility] Chloride 114(H) 96 - 110 mmol/L LAB CHEMISTRY METHOD 09/03/2024 12:11 PM [facility] CO2 19(L) 21 - 32 mmol/L LAB CHEMISTRY METHOD 09/03/2024 12:11 PM [facility] Anion Gap 7 3 - 11 LAB CHEMISTRY METHOD 09/03/2024 12:11 PM [facility] Glucose 94 70 - 100 mg/dL LAB CHEMISTRY METHOD 09/03/2024 12:11 PM [facility] BUN 17 5 - 25 mg/dL LAB CHEMISTRY METHOD 09/03/2024 12:11 PM [facility] Creatinine 0.90 0.70 - 1.30 mg/dL LAB CHEMISTRY METHOD 09/03/2024 12:11 PM [facility] eGFR 96 >=60 mL/min/1. 73m2 LAB CHEMISTRY METHOD 09/03/2024 12:11 PM [facility] Comment:Calculation based on the??Chronic Kidney Disease Epidemiology Collaboration (CKD-EPI) equation refit??without adjustment for race. BUN/Creatinine Ratio 18.9 LAB CHEMISTRY METHOD 09/03/2024 12:11 PM [facility] Calcium 9.5 8.5 - 10.5 mg/dL LAB CHEMISTRY METHOD 09/03/2024 12:11 PM [facility] AST (SGOT) 20 10 - 42 unit/L LAB CHEMISTRY METHOD 09/03/2024 12:11 PM [facility] ALT (SGPT) 22 10 - 60 unit/L LAB CHEMISTRY METHOD 09/03/2024 12:11 PM EST [facility] Alkaline Phosphatase 92 42 - 121 unit/L LAB CHEMISTRY METHOD 09/03/2024 12:11 PM [facility] Total Protein 6.6 6.0 - 8.0 g/dL LAB CHEMISTRY METHOD 09/03/2024 12:11 PM [facility] Albumin 3.3 3.2 - 5.0 g/dL LAB CHEMISTRY METHOD 09/03/2024 12:11 PM [facility] Total Bilirubin 0.2 0.0 - 1.4 mg/dL LAB CHEMISTRY METHOD 09/03/2024 12:11 PM [facility] Blood Venous blood specimen / Unknown Venipuncture / Unknown 09/03/2024 6:06 AM EST 09/03/2024 10:23 AM EST us Clemente Davidson MD LAB BLOOD ORDERABLES Final Resul t [facility] [address] [place] [address], documented in this encounter Visit Diagnoses Diagnosis Cellulitis, unspecified documented in this encounter Care Teams Loan Consultant Relationship Specialty Start Date End Date Clemente Davidson MD [address] [place] [address], [address] PCP - General Family Medicine 08/15/24 documented as of this encounter
--- OUTSIDE RECORDS SUMMARY | 2024-11-21 17:48 | XMS_ITS | Encounter Summary ---
Author Organization [facility] Address [address] [place] [address] Care Team Providers Care Global Sales Director Name Role Phone Clemente Davidson MD Primary Care Provider [phone] Encounter Details Date Type Department Care Team (Late st Contact Info) Description 09/20/2024 Lab Requisition [facility] - Main Lab [address] [facility] [place] [address] Clemente Davidson MD [address] [facility] [address], [address] Osteomyelitis of vertebra, sacral and sacrococcygeal [...] (CMS/HCC) documented in this encounter Care Teams Global Sales Director Relationship Specialty Start Date End Date Clemente Davidson MD [address] [facility] [address], [address] PCP - General Family Medicine 08/15/24 documented as of this encounter
== END 2024-11-21 17:40 | disposition home or self-care (01) ==
LOC: HO.MRI 17:39
PROVIDERS: PCP Internal Medicine; Visit Provider Psychiatry & Neurology Neurology
DX: M47.12 Other spondylosis with myelopathy, cervical region (principal)
CPT/HCPCS: 72141

== ENCOUNTER → 2024-11-21 18:18 | Outpatient (BNV) | payer OTHER, SELFPAY | PROVIDERS: PCP Internal Medicine; Visit Provider Radiology Neuroradiology | DX: M48.02 Spinal stenosis, cervical region (principal); M12.88 Other specific arthropathies, not elsewhere classified, other specified site | CPT/HCPCS: 72141 ==